=== PATIENT | female | born 1940 | race Caucasian/White ===

== ENCOUNTER 2018-01-16 22:47 | Inpatient (IN) ==
--- NOTE | 2018-01-16 23:06 | Emergency Department Note ---
Disposition Clinical Impression: Weakness of both lower extremities, Decreased ambulation status, Weakness of left upper extremity Altered mental status Qualifiers: Altered mental status type: unspecified Qualified Code(s): R41.82 - Altered mental status, unspecified Disposition: Admitted As Inpatient Condition: Good Time of Disposition: 01:56 Altered Mental Status HPI - General Chief Complaint: ED Altered Mental Status Stated Complaint: AMS Time Seen by Provider: 01/16/18 23:04 Source: family Mode of arrival: ambulatory Limitations: no limitations Nursing Notes Reviewed: Yes Vital Signs Reviewed: Yes - History of Present Illness HPI Narrative: Patient is a 77-year-old female with past history of hypertension, diabetes, dialysis dependent. She presents today due to altered mental status. Daughter states that she lives with the patient and that she had a fall on Tuesday. This was not witnessed but she was found by 2 other family members, was helped back up and seemed to be doing well per her baseline per daughter. However, this morning, upon awakening, the patient appeared to be confused more than normal, had decreased ambulation status. Daughter states that she is usually alert and oriented 3 and walks without any difficulty. Throughout the day, her status has progressively worsened. She is now nonverbal, will not ambulate at all. She has noticed some possible weakness of the left upper and left lower extremity. Denies any other facial drooping or slurring speech. - Related Data Home Medications Medication Instructions Recorded Confirmed Aspirin [Adult Aspirin Regimen] 81 mg PO DAILY 01/17/18 01/17/18 Atorvastatin [Lipitor] 40 mg PO HS 01/17/18 01/17/18 B Complex W-C No.20/Folic Acid 1 mg PO DAILY 01/17/18 01/17/18 [Nephrocaps Softgel] Calcium Acetate [Phos-LO] 667 mg PO BID 01/17/18 01/17/18 Cinacalcet HCl [Sensipar] 60 mg PO DAILY 01/17/18 01/17/18 Lisinopril [Zestril] 10 mg PO BID 01/17/18 01/17/18 Megestrol Acetate [Megace] 40 mg PO BID 01/17/18 01/17/18 Metoclopramide [Reglan] 10 mg PO QIDAC 01/17/18 01/17/18 Metoprolol Tartrate [Lopressor] 12.5 mg PO BID 01/17/18 01/17/18 Omeprazole [PriLOSEC] 20 mg PO BID 01/17/18 01/17/18 Allergies Allergy/AdvReac Type Severity Reaction Status Date / Time sulfamethoxazole Allergy Hives Verified 06/22/17 19:42 [From ] trimethoprim [From ] Allergy Hives Verified 06/22/17 19:42 Limitations: ROS unobtainable due to patients medical condition Past Medical History - Past Medical History Medical history: Reports: cancer, diabetes, dialysis, hypertension, RA, renal disease Surgical history: Reports: cholecystectomy, colectomy Psychiatric history: Reports: no psych history - Social History Smoking Status: Never smoker Smokeless Tobacco Status: No Alcohol use: Reports: none Drug use: Reports: none Physical Exam - General Limitations: altered mental status General appearance: alert - Head Head exam: atraumatic, normocephalic, normal inspection - Eye Eye exam: Present: normal appearance, PERRL, EOMI - ENT ENT exam: normal exam, normal oropharynx, mucous membranes moist - Neck Neck exam: Present: normal inspection, full ROM, trachea midline. Absent: tenderness - Chest Chest inspection: Present: normal inspection, symmetric chest wall rise - Respiratory Respiratory exam: Present: normal lung sounds bilaterally - Cardiovascular Cardiovascular exam: Present: regular rate, normal rhythm, normal heart sounds - Abdominal Exam Abdominal exam: Present: soft, Non-Tender. Absent: tenderness, distention, guarding, rebound, rigidity - Extremities Exam Extremities exam: Present: full ROM, other (small skin tear of LLE). Absent: tenderness, pedal edema - Neurological Exam Neurological exam: Present: alert - Expanded Neurological Exam Patient oriented to: Present: place. Absent: person, time Speech: Present: expressive aphasia Coma Scale Eye Opening: Spontaneous Coma Scale Motor Response: Localizes to Pain Coma Scale Verbal Response: None Coma Scale Total: 10 - Psychiatric Psychiatric exam: Present: normal mood, flat affect - Skin Skin exam: Present: warm, dry, intact, normal color Course Course Narrative: Patient only oriented to place, not person or time. She follows very minimal commands. No obvious facial droop. There does appear to be some weakness of the left upper extremity, no movement of the bilateral large ovaries. She is not following commands very well so full NIH scale is not able to be accurately obtained. Will not track with eyes. With recent trauma, there is concern for possible intracranial bleed. Patient is currently on aspirin but no other blood thinners. Also currently concern for stroke. ct of the head and cervical spine noncontrast, cannot perform cta due to patient being chronic renal patient. we will also obtain basic blood work, ekg, chest x-ray, troponin , urinalysis. 01:52 VBG shows no major metabolic/resp derangement. UA negative for UTI. Head and neck imaging negative, chest x-ray negative for any acute process. Patient was given Narcan without any change. No definite source for altered mental status at this time. Remains afebrile. Stroke still on differential the patient is outside window for TPA or thrombectomy. We will admit to the hospitalist for further workup and care of altered mental status. Cervical Spine CT 01/16/18 23:17 IMPRESSION: No acute abnormality of the cervical spine. Diffuse demineralization. D/ / Garland Morin MD / Garland Morin MD Interpreting Provider: Garland Morin MD Chest X-Ray 01/16/18 23:17 IMPRESSION: Low lung volume examination. Stable cardiomegaly and vascular congestion and interstitial prominence. D/ / Eduardo Pace MD / Eduardo Pace MD Interpreting Provider: Eduardo Pace MD Head CT 01/16/18 23:17 IMPRESSION: No acute intracranial abnormality. D/ / Garland Morin MD / Garland Mroin MD Interpreting Provider: Garland Morin MD Vital Signs Temperature 97.5 F L 01/16/18 22:48 Pulse Rate 67 01/16/18 22:48 Respiratory Rate 20 01/16/18 22:48 Blood Pressure 190/80 01/16/18 22:48 O2 Sat by Pulse Oximetry 96 01/16/18 22:48 Temperature 97.9 F 01/17/18 02:53 Pulse Rate 82 01/17/18 02:53 Respiratory Rate 15 01/17/18 02:53 Blood Pressure 174/90 01/17/18 02:53 O2 Sat by Pulse Oximetry 98 01/17/18 02:53 Oxygen Delivery Oxygen Delivery Nasal Cannula Altered Mental Status - MDM Narrative Medical decision making narrative: Patient only oriented to place, not person or time. She follows very minimal commands. No obvious facial droop. There does appear to be some weakness of the left upper extremity, no movement of the bilateral large ovaries. She is not following commands very well so full NIH scale is not able to be accurately obtained. Will not track with eyes. With recent trauma, there is concern for possible intracranial bleed. Patient is currently on aspirin but no other blood thinners. Also currently concern for stroke. ct of the head and cervical spine noncontrast, cannot perform cta due to patient being chronic renal patient. we will also obtain basic blood work, ekg, chest x-ray, troponin , urinalysis. 01:52 VBG shows no major metabolic/resp derangement. UA negative for UTI. Head and neck imaging negative, chest x-ray negative for any acute process. Patient was given Narcan without any change. No definite source for altered mental status at this time. Remains afebrile. Stroke still on differential the patient is outside window for TPA or thrombectomy. We will admit to the hospitalist for further workup and care of altered mental status. - Medical Records Medical records reviewed: Yes I reviewed the patient's medical records. - Lab Data Lab results reviewed: Yes I reviewed the patient's lab results. Result diagrams: 01/17/18 04:50 01/16/18 23:17 Lab Results 01/16/18 01/16/18 01/16/18 Range/Units 23:17 23:17 23:17 WBC 7.1 (4.3-11.1) K/mcL RBC 3.75 L (3.82-4.97) M/mcL Hgb 12.0 (11.5-15.4) g/dL Hct 35.9 (35.3-44.9) % MCV 95.7 (83.0-100.0) fL MCH 32.0 (28.0-33.3) pg MCHC 33.4 (31.6-35.5) g/dL RDW 13.3 (11.5-14.5) % Plt Count 204 (140-400) K/mcL MPV 11.3 (9.4-12.4) fL Immature Gran % 0.8 (0-4) % Seg Neutrophils % 77.3 % Lymphocytes % 14.5 % Monocytes % 5.9 % Eosinophils % 0.8 % Basophils % 0.7 % Neutrophils # 5.5 (1.6-8.9) K/mcL Lymphocytes # 1.0 (0.6-4.6) K/mcL Monocytes # 0.4 (0.0-1.3) K/mcL Eosinophils # 0.1 (0.0-0.6) K/mcL Basophils # 0.1 (0.0-0.2) K/mcL PT 11.3 (9.4-12.1) Seconds INR 1.1 APTT 32.5 (26.0-36.0) Seconds Sample Site ABG pH (7.32-7.45) pH Units ABG pCO2 (35-45) mmHg ABG pO2 (85-104) mmHg ABG HCO3 (21-27) mEq/L ABG Total CO2 (20-26) mEq/L ABG O2 Saturation (95-98) % ABG Base Excess (-2 to 3) mEq/L Emanuel Test O2 Delivery Device Inspired O2 (1-15=lpm [id number]=%) Sodium 137 (136-145) mEq/L Potassium 3.7 (3.5-5.1) mEq/L Chloride 96 L (98-107) mEq/L Carbon Dioxide 29 (23-29) mEq/L BUN 18 (8-23) mg/dL Creatinine 5.16 H (0.60-1.20) mg/dL Est GFR ( Amer) 10 L (> 60) Est GFR (Non-Af Amer) 8 L (> 60) BUN/Creatinine Ratio 3 L (6-26) Glucose 129 H (70-105) mg/dL POC Glucose (70-99) mg/dL Calculated Osmolality 288 (280-300) Calcium 10.2 (8.6-10.3) mg/dL Total Bilirubin 0.6 (0.3-1.0) mg/dL Direct Bilirubin 0.1 (0.0-0.2) mg/dL Indirect Bilirubin 0.5 (0.0-1.2) mg/dL AST 14 (13-39) Units/L ALT 11 (7-52) Units/L Alkaline Phosphatase 97 (34-104) Units/L Troponin I < 0.03 (< 0.04) ng/mL Serum Total Protein 6.4 (6.4-8.9) g/dL Albumin 3.8 (3.5-5.7) g/dL Globulin 2.6 (2.4-3.5) g/dL Albumin/Globulin Ratio 1.5 (1.1-2.2) TSH 2.679 (0.340-5.600) mcIU/mL Urine Color (Yellow) Urine Clarity (Clear) Urine pH (5.0-8.0) pH Units Ur Specific [place] (1.010-1.025) Urine Protein (Neg-Trace) mg/dL Urine Glucose (UA) (Normal) mg/dL Urine Ketones (Negative) mg/dL Urine Blood (Negative) Urine Nitrite (Negative) Urine Bilirubin (Negative) Urine Urobilinogen (Normal) mg/dL Ur Leukocyte Esterase (Negative) Urine Microscopic RBC (0-3) per hpf Urine Microscopic WBC (0-3) per hpf Ur Squamous Epith Cells (None-Few) per lpf Ur Culture Indicated? (NO) Urine Opiates Screen (Jvggek=605) ng/mL Ur Barbiturates Screen (Lndrjz=660) ng/mL Ur Phencyclidine Scrn (Cutoff=25) ng/mL Ur Amphetamines Screen (Nspybv=5006) ng/mL U Benzodiazepines Scrn (Pzsoei=624) ng/mL Urine Cocaine Screen (Cutoff= 300) ng/mL U Marijuana (THC) Screen (Cutoff = 50) ng/mL 01/16/18 01/16/18 01/16/18 Range/Units 23:26 23:26 23:37 WBC (4.3-11.1) K/mcL RBC (3.82-4.97) M/mcL Hgb (11.5-15.4) g/dL Hct (35.3-44.9) % MCV (83.0-100.0) fL MCH (28.0-33.3) pg MCHC (31.6-35.5) g/dL RDW (11.5-14.5) % Plt Count (140-400) K/mcL MPV (9.4-12.4) fL Immature Gran % (0-4) % Seg Neutrophils % % Lymphocytes % % Monocytes % % Eosinophils % % Basophils % % Neutrophils # (1.6-8.9) K/mcL Lymphocytes # (0.6-4.6) K/mcL Monocytes # (0.0-1.3) K/mcL Eosinophils # (0.0-0.6) K/mcL Basophils # (0.0-0.2) K/mcL PT (9.4-12.1) Seconds INR APTT (26.0-36.0) Seconds Sample Site ABG pH (7.32-7.45) pH Units ABG pCO2 (35-45) mmHg ABG pO2 (85-104) mmHg ABG HCO3 (21-27) mEq/L ABG Total CO2 (20-26) mEq/L ABG O2 Saturation (95-98) % ABG Base Excess (-2 to 3) mEq/L Emanuel Test O2 Delivery Device Inspired O2 (1-15=lpm [id number]=%) Sodium (136-145) mEq/L Potassium (3.5-5.1) mEq/L Chloride (98-107) mEq/L Carbon Dioxide (23-29) mEq/L BUN (8-23) mg/dL Creatinine (0.60-1.20) mg/dL Est GFR ( Amer) (> 60) Est GFR (Non-Af Amer) (> 60) BUN/Creatinine Ratio (6-26) Glucose (70-105) mg/dL POC Glucose 118 H (70-99) mg/dL Calculated Osmolality (280-300) Calcium (8.6-10.3) mg/dL Total Bilirubin (0.3-1.0) mg/dL Direct Bilirubin (0.0-0.2) mg/dL Indirect Bilirubin (0.0-1.2) mg/dL AST (13-39) Units/L ALT (7-52) Units/L Alkaline Phosphatase (34-104) Units/L Troponin I (< 0.04) ng/mL Serum Total Protein (6.4-8.9) g/dL Albumin (3.5-5.7) g/dL Globulin (2.4-3.5) g/dL Albumin/Globulin Ratio (1.1-2.2) TSH (0.340-5.600) mcIU/mL Urine Color Yellow (Yellow) Urine Clarity Clear (Clear) Urine pH 8.0 (5.0-8.0) pH Units Ur Specific [place] 1.014 (1.010-1.025) Urine Protein >=300 H (Neg-Trace) mg/dL Urine Glucose (UA) 100 H (Normal) mg/dL Urine Ketones Negative (Negative) mg/dL Urine Blood Trace H (Negative) Urine Nitrite Negative (Negative) Urine Bilirubin Negative (Negative) Urine Urobilinogen Normal (Normal) mg/dL Ur Leukocyte Esterase Negative (Negative) Urine Microscopic RBC 0-3 (0-3) per hpf Urine Microscopic WBC 0-3 (0-3) per hpf Ur Squamous Epith Cells Few (None-Few) per lpf Ur Culture Indicated? NO (NO) Urine Opiates Screen Negative (Ncwbcw=213) ng/mL Ur Barbiturates Screen Negative (Gympyt=459) ng/mL Ur Phencyclidine Scrn Negative (Cutoff=25) ng/mL Ur Amphetamines Screen Negative (Xahbgg=2297) ng/mL U Benzodiazepines Scrn Negative (Bfeuzd=680) ng/mL Urine Cocaine Screen Negative (Cutoff= 300) ng/mL U Marijuana (THC) Screen Negative (Cutoff = 50) ng/mL 01/16/18 Range/Units 23:49 WBC (4.3-11.1) K/mcL RBC (3.82-4.97) M/mcL Hgb (11.5-15.4) g/dL Hct (35.3-44.9) % MCV (83.0-100.0) fL MCH (28.0-33.3) pg MCHC (31.6-35.5) g/dL RDW (11.5-14.5) % Plt Count (140-400) K/mcL MPV (9.4-12.4) fL Immature Gran % (0-4) % Seg Neutrophils % % Lymphocytes % % Monocytes % % Eosinophils % % Basophils % % Neutrophils # (1.6-8.9) K/mcL Lymphocytes # (0.6-4.6) K/mcL Monocytes # (0.0-1.3) K/mcL Eosinophils # (0.0-0.6) K/mcL Basophils # (0.0-0.2) K/mcL PT (9.4-12.1) Seconds INR APTT (26.0-36.0) Seconds Sample Site L Radial ABG pH 7.44 (7.32-7.45) pH Units ABG pCO2 48 H (35-45) mmHg ABG pO2 178 H (85-104) mmHg ABG HCO3 33 H (21-27) mEq/L ABG Total CO2 34 H (20-26) mEq/L ABG O2 Saturation 100 H (95-98) % ABG Base Excess 8 H (-2 to 3) mEq/L Emanuel Test N/A O2 Delivery Device Cannula Inspired O2 36.0 (1-15=lpm [id number]=%) Sodium (136-145) mEq/L Potassium (3.5-5.1) mEq/L Chloride (98-107) mEq/L Carbon Dioxide (23-29) mEq/L BUN (8-23) mg/dL Creatinine (0.60-1.20) mg/dL Est GFR ( Amer) (> 60) Est GFR (Non-Af Amer) (> 60) BUN/Creatinine Ratio (6-26) Glucose (70-105) mg/dL POC Glucose (70-99) mg/dL Calculated Osmolality (280-300) Calcium (8.6-10.3) mg/dL Total Bilirubin (0.3-1.0) mg/dL Direct Bilirubin (0.0-0.2) mg/dL Indirect Bilirubin (0.0-1.2) mg/dL AST (13-39) Units/L ALT (7-52) Units/L Alkaline Phosphatase (34-104) Units/L Troponin I (< 0.04) ng/mL Serum Total Protein (6.4-8.9) g/dL Albumin (3.5-5.7) g/dL Globulin (2.4-3.5) g/dL Albumin/Globulin Ratio (1.1-2.2) TSH (0.340-5.600) mcIU/mL Urine Color (Yellow) Urine Clarity (Clear) Urine pH (5.0-8.0) pH Units Ur Specific [place] (1.010-1.025) Urine Protein (Neg-Trace) mg/dL Urine Glucose (UA) (Normal) mg/dL Urine Ketones (Negative) mg/dL Urine Blood (Negative) Urine Nitrite (Negative) Urine Bilirubin (Negative) Urine Urobilinogen (Normal) mg/dL Ur Leukocyte Esterase (Negative) Urine Microscopic RBC (0-3) per hpf Urine Microscopic WBC (0-3) per hpf Ur Squamous Epith Cells (None-Few) per lpf Ur Culture Indicated? (NO) Urine Opiates Screen (Dyenbz=524) ng/mL Ur Barbiturates Screen (Vbluta=763) ng/mL Ur Phencyclidine Scrn (Cutoff=25) ng/mL Ur Amphetamines Screen (Bbxrwn=8137) ng/mL U Benzodiazepines Scrn (Hsxkjz=425) ng/mL Urine Cocaine Screen (Cutoff= 300) ng/mL U Marijuana (THC) Screen (Cutoff = 50) ng/mL - Radiology Data Radiology results reviewed: Yes I reviewed the patient's radiology results. Cervical Spine CT 01/16/18 23:17 IMPRESSION: No acute abnormality of the cervical spine. Diffuse demineralization. D/ / Garland Morin MD / Garland Morin MD Interpreting Provider: Garland Morin MD Chest X-Ray 01/16/18 23:17 IMPRESSION: Low lung volume examination. Stable cardiomegaly and vascular congestion and interstitial prominence. D/ / Eduardo Pace MD / Eduardo Pace MD Interpreting Provider: Eduardo Pace MD Head CT 01/16/18 23:17 IMPRESSION: No acute intracranial abnormality. D/ / Garland Morin MD / Garland Morin MD Interpreting Provider: Garland Morin MD - EKG Data EKG attestation: Yes I reviewed and interpreted this EKG. S.B.Pipe - S.Tracy Situation: Demographics, MOA Background: Presenting Complaint, Relevant PMH, Meds, & Allergies Assessment: Vital Signs, Course and respsone to treatment, Exam Concerns, Patient/Family Expectation, Pertinant Lab Results Recommendation: Barrier(s) to disposition, Recommendation based on pending studies, treatments, or consults S.B.A.R. Report Given to: Dr. Martinez Attestation Statement - Attestation Attestation: I examined this patient and my medical decision-making was reviewed with the Resident Physician. I agree with the documented findings, disposition and treatment plan as described except to the extent set forth below. Findings consistent with altered mental status. The exact cause is unknown at this time. Advanced imaging as well as metabolic panel does not suggest a significant explanation as to why the patient is so altered. She is not following any commands at this time. We will admit for MRI. Her vital signs are stable and she is protecting her airway. CT scan of brain shows no acute findings. The patient will be admitted in stable condition for further management of possible encephalopathy. NIH Stroke Scale - Level of Consciousness LOC: Alert - LOC Questions LOC Questions: Answers one correctly - LOC Commands LOC Commands: Performs both incorrectly - Best Gaze Best Gaze: Normal - Visual Visual: No visual loss - Facial Palsy Facial Palsy: Normal - Motor Arms Motor Arm-Left: Drift, does NOT hit bed Motor Arm-Right: No drift for 10 seconds - Motor Legs Motor Leg-Left: No movement Motor Leg-Right: No movement - Limb Ataxia Limb Ataxia: Absent of affected limb too weak to perform exam - Sensory Sensory: Normal - Best Language Best Language: Severe aphasia. Examiner CAN NOT identify pictures from response - Dysarthria Dysarthria: Normal - Extinction and Inattention Extinction and Inattention: Normal - NIHSS Total Score NIHSS Total Score: 14
[2018-01-16 23:43] LABS: Basophils # 0.1 K/mcL (0.0-0.2); Basophils % 0.7 %; Eosinophils # 0.1 K/mcL (0.0-0.6); Eosinophils % 0.8 %; Hematocrit 35.9 % (35.3-44.9); Immature Granulocytes % 0.8 % (0-4); Lymphocytes % 14.5 %; Mean Corpuscular HGB Conc 33.4 g/dL (31.6-35.5); Mean Corpuscular Volume 95.7 fL (83.0-100.0); Mean Platelet Volume 11.3 fL (9.4-12.4); Monocytes # 0.4 K/mcL (0.0-1.3); Monocytes % 5.9 %; Neutrophils # 5.5 K/mcL (1.6-8.9); Platelet Count 204 K/mcL (140-400); Red Blood Count 3.75 M/mcL (3.82-4.97); Red Cell Distribution Width 13.3 % (11.5-14.5); Segmented Neutrophils % 77.3 %
[2018-01-16 23:49] LABS: INR 1.1; Prothrombin Time 11.3 Seconds (9.4-12.1)
[2018-01-16 23:52] LABS: Activated Partial Thrombo Time 32.5 Seconds (26.0-36.0)
[2018-01-16 23:54] LABS: ABG Base Excess 8 mEq/L (-2 to 3); ABG HCO3 33 mEq/L (21-27); ABG Oxygen Saturation 100 % (95-98); ABG PCO2 48 mmHg (35-45); ABG PH 7.44 pH Units (7.32-7.45); ABG PO2 178 mmHg (85-104); ABG TCO2 34 mEq/L (20-26)
[2018-01-17] LABS: Alanine Aminotransferase 11 Units/L (7-52); Albumin 3.8 g/dL (3.5-5.7); Albumin/Globulin Ratio 1.5 (1.1-2.2); Alkaline Phosphatase 97 Units/L (34-104); Aspartate Amino Transferase 14 Units/L (13-39); BUN/Creatinine Ratio 3 (6-26); Bilirubin,Direct 0.1 mg/dL (0.0-0.2); Bilirubin,Indirect 0.5 mg/dL (0.0-1.2); Bilirubin,Total 0.6 mg/dL (0.3-1.0); Blood Urea Nitrogen 18 mg/dL (8-23); Calcium 10.2 mg/dL (8.6-10.3); Carbon Dioxide 29 mEq/L (23-29); Chloride 96 mEq/L (98-107); Globulin 2.6 g/dL (2.4-3.5); Glucose 129 mg/dL (70-105); Osmolality,Calculated 288 (280-300); Potassium 3.7 mEq/L (3.5-5.1); Sodium 137 mEq/L (136-145); Total Protein 6.4 g/dL (6.4-8.9); eGFR For African Americans 10 (> 60); eGFR For Non-African Americans 8 (> 60)
[2018-01-17 00:01] LABS: Troponin I < 0.03 ng/mL (< 0.04)
[2018-01-17 00:14] LABS: Thyroid Stimulating Hormone 2.679 mcIU/mL (0.340-5.600)
[2018-01-17 00:36] LABS: Color,Urine Yellow (Yellow)
[2018-01-17 00:37] LABS: Bilirubin,Urine Negative (Negative); Blood,Urine Trace (Negative); Clarity,Urine Clear (Clear); Glucose,Urine (UA) 100 mg/dL (Normal); Ketones,Urine Negative (Negative); Leukocyte Esterase,Urine Negative (Negative); Nitrite,Urine Negative (Negative); Protein,Urine >=300 mg/dL (Neg-Trace); Specific Gravity,Urine 1.014 (1.010-1.025); Urobilinogen,Urine Normal (Normal)
[2018-01-17] MEDS ORDERED: Naloxone 0.4 MG/ML INJ IVP ONE (00:39)
[2018-01-17 00:40] LABS: RBC,Urine 0-3 per hpf (0-3); Squamous Epithelial Cell,Urine Few per lpf (None-Few); WBC,Urine 0-3 per hpf (0-3)
[2018-01-17 00:52] LABS: Amphetamine Screen,Urine Negative ng/mL (Cutoff=1000); Barbiturate Screen,Urine Negative ng/mL (Cutoff=200); Benzodiazepines Screen,Urine Negative ng/mL (Cutoff=200); Cannabinoid Screen,Urine Negative ng/mL (Cutoff = 50); Cocaine Screen,Urine Negative ng/mL (Cutoff= 300); Opiate Screen,Urine Negative ng/mL (Cutoff=300); Phencyclidine Screen,Urine Negative ng/mL (Cutoff=25)
[2018-01-17] MEDS ORDERED: 0.9 % Sodium Chloride 500 ML IVC ONE (02:04)
[2018-01-17] MEDS ORDERED: Gadolinium Contrast Agent (WT Based) IV PRN (02:30)
[2018-01-17] MEDS ORDERED: Acetaminophen 650 MG RECTAL SUPP RC PRN (02:42)
[2018-01-17] MEDS ORDERED: Naloxone 0.4 MG/ML INJ IVP PRN (02:51)
[2018-01-17] MEDS ORDERED: Dextrose Gel 15 GM/37.5 ML TUBE PO PRN ×2 (03:05)
[2018-01-17] MEDS ORDERED: D5% in Water 1,000 ML IVC PRN (03:05)
[2018-01-17] MEDS ORDERED: *HR* Dextrose 50 % in Water (Syg) 50 ML SYRINGE IVP PRN (03:05)
--- NOTE | 2018-01-17 03:08 | Internal Med History&Physical ---
Date of Encounter: 01/17/18 Time of Encounter: 03:36 Internal Medicine - H&P: HPI Chief complaint: "Not being herself after fall" per daughter Admitted From: Emergency Dept Plans for Post Hospital Care: Home History of present illness: Ms. Greer is a 77 year old female who presents for AMS getting worse over last few days. Daughter is in the room and provides all of the history. Patient is non-verbal, but she does move her head yes/no appropriately. She is not in any pain or discomfort. Daughter states that she sometimes gets like this when she has low blood glucose or hyperkalemia. ED labwork is unremarkable. Daughter is concerned about BLE weakness and possible LUE weakness. I cannot perform full physical examination due to patient condition. Daughter is interested in home health. I was asked by ED physician to admit patient for AMS not back to baseline and CVA ruleout. Past Med Surg Social Fam HX - Past Medical History Source: unable to obtain Medical history: cancer, diabetes, dialysis, hypertension, RA, renal disease Psychiatric history: no psych history - Past Surgical History Surgical History: cholecystectomy, colectomy - Social History Smoking Status: Never smoker Smokeless Tobacco Status: No Alcohol use: none Drug use: none - Additional Family History Additional family history: Unable to obtain family history due to patient condition. Internal Medicine - H&P: Meds Aspirin [Adult Aspirin Regimen] 81 mg PO DAILY 01/17/18 [History] Atorvastatin [Lipitor] 40 mg PO HS 01/17/18 [History] B Complex W-C No.20/Folic Acid [Nephrocaps Softgel] 1 mg PO DAILY 01/17/18 [ History] Calcium Acetate [Phos-LO] 667 mg PO BID 01/17/18 [History] Cinacalcet HCl [Sensipar] 60 mg PO DAILY 01/17/18 [History] Lisinopril [Zestril] 10 mg PO BID 01/17/18 [History] Megestrol Acetate [Megace] 40 mg PO BID 01/17/18 [History] Metoclopramide [Reglan] 10 mg PO QIDAC 01/17/18 [History] Metoprolol Tartrate [Lopressor] 12.5 mg PO BID 01/17/18 [History] Omeprazole [PriLOSEC] 20 mg PO BID 01/17/18 [History] 3 Allergy/AdvReac Type Severity Reaction Status Date / Time sulfamethoxazole Allergy Hives Verified 06/22/17 19:42 [From ] trimethoprim [From ] Allergy Hives Verified 06/22/17 19:42 ROS unobtainable: due to mental status All Systems PM: A 10-system review of systems was performed and is negative for pertinent findings except as documented above in the HPI. - Constitutional Vitals: Temp Pulse Resp BP Pulse Ox 97.9 F 82 15 174/90 98 01/17/18 02:53 01/17/18 02:53 01/17/18 02:53 01/17/18 02:53 01/17/18 02:53 General appearance: Present: A&O X 0, no acute distress, obese. Absent: answers questions appropriately - Head Head exam: Present: atraumatic, normal inspection, normocephalic - Eye Eye exam: Present: EOMI, normal appearance, PERRL. Absent: conjunctival injection, nystagmus, scleral icterus - ENT ENT exam: Present: mucous membranes moist, normal external ear exam, normal oropharynx - Neck Neck exam general surgery: Present: supple, trachea midline. Absent: lymphadenopathy, tenderness, thyromegaly - Respiratory Respiratory exam: Present: CTAB. Absent: accessory muscle use, rales, rhonchi, wheezes Additional comments: Normal WOB - Cardiovascular Cardiovascular exam: Present: RRR, +S1, +S2. Absent: diastolic murmur, gallop, rubs, systolic murmur Additional comments: No BLE edema - GI/Abdominal GI/Abdominal exam: Present: normal bowel sounds, soft. Absent: distended, hepatomegaly, mass, splenomegaly, tenderness - Neurological Exam Neurological exam: Present: altered. Absent: facial droop Additional comments: Unable to fully evaluate due to patient condition - Psychiatric Psychiatric exam: Absent: agitated, anxious, depressed Additional comments: Unable to fully evaluate due to patient condition - Skin Skin exam: Present: dry, warm. Absent: cyanosis, rash Internal Med - H&P Results - Labs CBC & Chem 7: 01/16/18 23:17 01/16/18 23:17 - VTE Documentation of Mechanical Device: Intermittent pneumatic compression device - Assessment and plan (1) Altered mental status Current Visit: Yes Status: Acute Assessment and plan: New onset. Family states she sometimes gets like this when her blood glucose or potassium is off. Already improving since arrival to ED per daughter. She lives with daughter. Her baseline is walking and talking. She had a fall few days ago. She has some BLE weakness per daughter. Patient answers appropriately to yes/no questions. She is non-verbal at this time. We will rule out CVA. Obtain MRI brain in AM. Consult neurologist in AM; appreciate their input. Neurochecks Q4H. NPO until ST evaluation. Continue home aspirin and statin when taking PO. Will consult PT/OT due to BLE weakness and recurrent falls. Will consult SW to see if patient can get home health. Avoid sedating medications. Repeat labwork in AM. Qualifiers: Altered mental status type: unspecified Qualified Code(s): R41.82 - Altered mental status, unspecified (2) Decreased ambulation status Current Visit: Yes Status: Acute Assessment and plan: Plan as per above. (3) Weakness of both lower extremities Current Visit: Yes Status: Acute Assessment and plan: Plan as per above. (4) Weakness of left upper extremity Current Visit: Yes Status: Acute Assessment and plan: Plan as per above. (5) Diabetes mellitus Current Visit: Yes Status: Chronic Assessment and plan: Start accuchecks and low dose SSI Q6H while NPO. Qualifiers: Diabetes mellitus type: type 2 Diabetes mellitus rat exterminator insulin use: without rat exterminator use Diabetes mellitus complication status: without complication Qualified Code(s): E11.9 - Type 2 diabetes mellitus without complications (6) End stage renal disease Current Visit: Yes Status: Chronic Assessment and plan: Will consult nephrology in AM; appreciate their help. On low rate IVF while NPO. Continue MWF dialysis schedule. (7) DVT prophylaxis Current Visit: Yes Status: Acute Assessment and plan: Start SCDs. - Time Spent With Patient Total time spent is greater than 50% in coordination of care (as documented) at patient's floor/unit and/or counseling patient: less than 15 minutes
[2018-01-17 05:28] LABS: Basophils % 0.6 %; Eosinophils % 0.4 %; Hematocrit 33.2 % (35.3-44.9); Hemoglobin 10.9 g/dL (11.5-15.4); Immature Granulocytes % 0.6 % (0-4); Lymphocytes # 1.1 K/mcL (0.6-4.6); Lymphocytes % 15.6 %; Mean Corpuscular HGB Conc 32.8 g/dL (31.6-35.5); Mean Corpuscular Hemoglobin 31.1 pg (28.0-33.3); Mean Corpuscular Volume 94.9 fL (83.0-100.0); Mean Platelet Volume 11.4 fL (9.4-12.4); Monocytes # 0.4 K/mcL (0.0-1.3); Monocytes % 5.5 %; Neutrophils # 5.3 K/mcL (1.6-8.9); Platelet Count 191 K/mcL (140-400); Red Cell Distribution Width 13.2 % (11.5-14.5); Segmented Neutrophils % 77.3 %
[2018-01-17 05:48] LABS: Calcium 9.8 mg/dL (8.6-10.3); Potassium 3.8 mEq/L (3.5-5.1)
[2018-01-17] MEDS: 0.9 % Sodium Chloride 1,000 ML IVC SCH (06:33)
[2018-01-17] MEDS: Insulin LISPRO 300 UNITS/3 ML VIAL SQ SCH ×4 (06:37→23:46)
[2018-01-17 09:29] LABS: Estimated Average Glucose 91 mg/dl; Hemoglobin A1C 4.8 %
[2018-01-17] MEDS: Renal Vitamin 1 MG CAPSULE PO SCH (09:55)
[2018-01-17] MEDS: Calcium Acetate 667 MG CAPSULE PO SCH ×2 (09:55→17:20)
[2018-01-17] MEDS: Aspirin 81 MG TAB.CHEW PO SCH (09:56)
--- NOTE | 2018-01-17 16:29 | Neurology - Consult Note ---
Date of Encounter: 01/17/18 Time of Encounter: 16:23 Assessment and Plan (1) Altered mental status Current Visit: No Status: Resolved Patient has developed acute onset of mental status changes characterized by not responding verbal inquiries, with starring activity and not acting normal self, without focal weakness and other localizing signs. Patient does carry history of tuberous sclerosis and positive family history of the disease and does seem to have baseline cognitive impairment which would be expected from her having tuberous sclerosis. 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 Patient has no previous history of established diagnosis of seizure but she is certainly having risk of partial epilepsy due to tuberous sclerosis. At the time of this interview, the patient completed MRI of brain which showed no acute infarct. However, it was a poor quality study due to motion artifacts. No cerebral tuber can be detected. therefore likely the patient is likely developed encephalopathy of some sort on top of TSC with baseline cognitive impairment. Since risk of partial epilepsy is higher, will do a routine EEG to assess possibility of silent partial epilepsy. Please continue medical and supportive care. carotid artery artery duplex and echocardiography are needed as well Qualifiers: Altered mental status type: unspecified Qualified Code(s): R41.82 - Altered mental status, unspecified History of Present Illness Chief complaint: mental status changes HPI: Ms. Greer is a 77 year old female 77 year old woman with PMH significant for tuberous sclerosis, HTN, hyperparthyroidism, GERD, RA, DM ESRD who developed acute onset of mental status changes. Patient is interviewed in the presence of her daughter. Daughter states that yesterday the patient was found to be acting funny and not normal self. Daughter told her something she was just looking at her and acted like she does not know what is going on. She just is not responding to her as usual. She has history of tuberous sclerosis, and she does have baseline cognitive impairment and she is able to walk with a walker. She walks little without assistance and walks better with a walker at home per her daughter. She has no history of seizures though. She came back from MRI scanning. She is wide awake and makes good eye contact but is essentially mute. However, she did, after repetitive request, tell me er daughter name correctly therefore is alert and oriented to person. But then she simply stopped responding to questions and simply look at you without any signs of discomforts. Is able to turn on the back when asked to. Able to move all extremities. Past Med Surg Social Fam HX - Past Medical History Medical history: cancer, diabetes, dialysis, hypertension, RA, renal disease Psychiatric history: no psych history - Past Surgical History Surgical History: cholecystectomy, colectomy - Social History Smoking Status: Never smoker Smokeless Tobacco Status: No Alcohol use: none Drug use: none Medications and Allergies Aspirin [Adult Aspirin Regimen] 81 mg PO DAILY 01/17/18 [History] Atorvastatin [Lipitor] 40 mg PO HS 01/17/18 [History] B Complex W-C No.20/Folic Acid [Nephrocaps Softgel] 1 mg PO DAILY 01/17/18 [ History] Calcium Acetate [Phos-LO] 667 mg PO BID 01/17/18 [History] Cinacalcet HCl [Sensipar] 60 mg PO DAILY 01/17/18 [History] Lisinopril [Zestril] 10 mg PO DAILY 01/17/18 [History] Megestrol Acetate [Megace] 40 mg PO BID 01/17/18 [History] Metoclopramide [Reglan] 10 mg PO QIDAC 01/17/18 [History] Metoprolol Tartrate [Lopressor] 12.5 mg PO BID 01/17/18 [History] Omeprazole [PriLOSEC] 20 mg PO BID 01/17/18 [History] 3 Allergy/AdvReac Type Severity Reaction Status Date / Time sulfamethoxazole Allergy Hives Verified 06/22/17 19:42 [From ] trimethoprim [From ] Allergy Hives Verified 06/22/17 19:42 All Systems: The remainder of the systems were reviewed and are negative Physical Examination - Vital Signs Vital Signs: Initial Vital Signs Temp Pulse Resp BP Pulse Ox 97.5 F L 67 20 190/80 96 01/16/18 22:48 01/16/18 22:48 01/16/18 22:48 01/16/18 22:48 01/16/18 22:48 - Constitutional General appearance: comfortable - Neurologic Sensorimotor examination: other (Unable to assess due to incooperativity) Detailed motor examination: grossly full strength in all extremities (Hand electric 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 When flexing her neck she is resisting passive movement of her head. ) Reflex and gait examination: other (Gait not examined) Reflexes: Biceps: 2+, Triceps: 2+, Brachioradialis: 2+, Patella: 2+, Achilles: 2 + Mental Status Examination: awake, alert, oriented to person (Able to tell me her daughters name only one time. Then stopped responding wide awake), opens eyes to voice, makes eye contact, follows simple commands (Do follow simple commands such as turning on her back at least trying) Cranial nerve examination: PERRL, visual mensah intact (Unable to assess), corneal reflexes brisk symmetrically, sensory to face intact, mastication intact , no facial asymmetry is present, no dysarthria, hearing is intact symmetrically , soft palate elevates bilaterally upon phonation (Uanble to assess. Incooperative), gag reflex intact, flexes SCM and trapezius muscles symmetrically with full power, tongue protrudes midline, no atrophy or facial fasiculations present Results - Laboratory Findings CBC and BMP: 01/17/18 04:50 01/17/18 04:50 Abnormal lab findings: Abnormal lab results RBC 3.50 M/mcL (3.82-4.97) L 01/17/18 04:50 Hgb 10.9 g/dL (11.5-15.4) L 01/17/18 04:50 Hct 33.2 % (35.3-44.9) L 01/17/18 04:50 ABG pCO2 48 mmHg (35-45) H 01/16/18 23:49 ABG pO2 178 mmHg (85-104) H 01/16/18 23:49 ABG HCO3 33 mEq/L (21-27) H 01/16/18 23:49 ABG Total CO2 34 mEq/L (20-26) H 01/16/18 23:49 ABG O2 Saturation 100 % (95-98) H 01/16/18 23:49 ABG Base Excess 8 mEq/L (-2 to 3) H 01/16/18 23:49 Chloride 97 mEq/L (98-107) L 01/17/18 04:50 Creatinine 5.56 mg/dL (0.60-1.20) H 01/17/18 04:50 Est GFR ( Amer) 9 (> 60) L 01/17/18 04:50 Est GFR (Non-Af Amer) 7 (> 60) L 01/17/18 04:50 BUN/Creatinine Ratio 4 (6-26) L 01/17/18 04:50 Glucose 130 mg/dL (70-105) H 01/17/18 04:50 POC Glucose 118 mg/dL (70-99) H 01/16/18 23:37 Urine Protein >=300 mg/dL (Neg-Trace) H 01/16/18 23:26 Urine Glucose (UA) 100 mg/dL (Normal) H 01/16/18 23:26 Urine Blood Trace (Negative) H 01/16/18 23:26 - Diagnostic Findings Additional findings: MR/MR head/brain wo con IMPRESSION: 1. Severely limited study secondary to motion artifact. 2. No evidence of acute infarct. 3. Cerebral parenchymal volume loss with mild chronic microvascular white matter ischemic disease, stable. 4. Ventriculomegaly. While this is likely related to involutional change, normal pressure hydrocephalus cannot be excluded. Consult Discharge Plan - Plan Referrals: Sven Delong DO [Primary Care Provider] -
--- NOTE | 2018-01-17 16:57 | Electrocardiograph Report ---
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
[2018-01-17 18:59] LABS: Hepatitis B Surface Antigen Nonreactive (Nonreactive)
--- NOTE | 2018-01-17 20:34 | Event Note ---
Date of Encounter: 01/17/18 Time of Encounter: 16:00 Patient was seen earlier today by hospitalist. Presently patient oriented to name only attempts to follow simple commands answers yes and no at times just stares off. She is seen by neurology suspect encephalopathy of some sort on top of tuberous sclerosis with baseline cognitive impairment. Recommending EEG supportive care carotid artery duplex and echo.
[2018-01-18 03:52] LABS: Hepatitis B Surface Antibody 0.43 mIU/mL
[2018-01-18] MEDS: Insulin LISPRO 300 UNITS/3 ML VIAL SQ SCH ×4 (07:40→21:56)
[2018-01-18 08:00] LABS: Calcium 9.6 mg/dL (8.6-10.3); Potassium 3.4 mEq/L (3.5-5.1)
[2018-01-18 08:24] LABS: Basophils % 0.5 %; Eosinophils # 0.1 K/mcL (0.0-0.6); Eosinophils % 1.9 %; Hematocrit 32.5 % (35.3-44.9); Hemoglobin 10.4 g/dL (11.5-15.4); Immature Granulocytes % 0.5 % (0-4); Lymphocytes # 1.3 K/mcL (0.6-4.6); Lymphocytes % 17.4 %; Mean Corpuscular Hemoglobin 30.9 pg (28.0-33.3); Mean Corpuscular Volume 96.4 fL (83.0-100.0); Mean Platelet Volume 11.5 fL (9.4-12.4); Monocytes # 0.7 K/mcL (0.0-1.3); Monocytes % 9.1 %; Neutrophils # 5.2 K/mcL (1.6-8.9); Platelet Count 192 K/mcL (140-400); Red Blood Count 3.37 M/mcL (3.82-4.97); Red Cell Distribution Width 13.4 % (11.5-14.5); Segmented Neutrophils % 70.6 %
[2018-01-18] MEDS: 0.9 % Sodium Chloride 1,000 ML IVC SCH ×2 (08:24→21:55)
[2018-01-18] MEDS: Calcium Acetate 667 MG CAPSULE PO SCH ×2 (08:26→16:07)
[2018-01-18] MEDS: Aspirin 81 MG TAB.CHEW PO SCH (08:26)
[2018-01-18] MEDS: Renal Vitamin 1 MG CAPSULE PO SCH (08:26)
[2018-01-18] MEDS ORDERED: 0.9 % Sodium Chloride 250 ML IVC PRN (12:36)
[2018-01-18] MEDS ORDERED: 0.9 % Sodium Chloride 1,000 ML PRIME SCH (12:45)
--- NOTE | 2018-01-18 12:53 | Nephrology Consult Note ---
Date of Encounter: 01/18/18 Time of Encounter: 12:51 Assessment and Plan (1) End stage renal disease Current Visit: Yes Status: Chronic The patient will undergo dialysis today. I am going to make some adjustments to her antihypertensive regimen. (2) Altered mental status Current Visit: No Status: Resolved Qualifiers: Altered mental status type: unspecified Qualified Code(s): R41.82 - Altered mental status, unspecified (3) Tuberous sclerosis Current Visit: No Status: Chronic History of Present Illness - History of Present Illness This is a 77-year-old female with end-stage renal disease. End stage renal disease is in the setting of tuberous sclerosis. Patient receives dialysis every Tuesday in [place]. Patient was admitted after being observed by the family to have some mental status changes. Patient is a poor historian. Medical record indicates the patient was confused and nonverbal when she was initially admitted. Blood pressure was elevated. Currently the patient is more verbal. She will answer simple questions. She did is oriented to person. She no she is not at home but she is not sure that she is in the hospital. According to the patient's nurse she is definitely more verbal currently than she was when she first presented. She is scheduled for her usual dialysis today. Past Med Surg Social Fam HX - Past Medical History Medical history: cancer, diabetes, dialysis, hypertension, RA, renal disease Psychiatric history: no psych history - Past Surgical History Surgical History: cholecystectomy, colectomy - Social History Smoking Status: Never smoker Smokeless Tobacco Status: No Alcohol use: none Drug use: none Medications and Allergies Aspirin [Adult Aspirin Regimen] 81 mg PO DAILY 01/17/18 [History] Atorvastatin [Lipitor] 40 mg PO HS 01/17/18 [History] B Complex W-C No.20/Folic Acid [Nephrocaps Softgel] 1 mg PO DAILY 01/17/18 [ History] Calcium Acetate [Phos-LO] 667 mg PO BID 01/17/18 [History] Cinacalcet HCl [Sensipar] 60 mg PO DAILY 01/17/18 [History] Lisinopril [Zestril] 10 mg PO DAILY 01/17/18 [History] Megestrol Acetate [Megace] 40 mg PO BID 01/17/18 [History] Metoclopramide [Reglan] 10 mg PO QIDAC 01/17/18 [History] Metoprolol Tartrate [Lopressor] 12.5 mg PO BID 01/17/18 [History] Omeprazole [PriLOSEC] 20 mg PO BID 01/17/18 [History] 3 Allergy/AdvReac Type Severity Reaction Status Date / Time sulfamethoxazole Allergy Hives Verified 06/22/17 19:42 [From ] trimethoprim [From ] Allergy Hives Verified 06/22/17 19:42 Review of Systems ROS unobtainable: due to mental status Exam - Vital Signs Vital signs: Initial Vital Signs Temp Pulse Resp BP Pulse Ox 97.5 F L 67 20 190/80 96 01/16/18 22:48 01/16/18 22:48 01/16/18 22:48 01/16/18 22:48 01/16/18 22:48 Vital Signs - Last 8 Hours Temp Pulse Resp BP Pulse Ox 01/18/18 12:02 98.3 F 78 18 192/98 92 01/18/18 07:08 98.1 F 77 16 181/78 92 Intake and Output 01/17/18 01/18/18 01/18/18 23:59 07:59 15:59 Intake Total 1000 / 1000 120 / 120 Balance 1000 / 1000 120 / 120 Intake: IV Fluids 1000 / 1000 0.9 % Sodium Chloride 1,000 ML 1000 / 1000 @ 50 mls/hr IVC .Q20H [facility] Rx#: [id number] Oral 120 / 120 Other: Meal Breakfast Percent of Meal Consumed 50% # Voids 1 # Urine Diapers 1 0 0 # Bowel Movement Diapers 0 0 Weight 77.4 kg Blood Glucose* 126 123 94 Patient Weight 01/18/18 23:59 Weight 77.4 kg - General Appearance Exam: Patient will answer to her name. She is alert. She is not completely oriented. Blood pressure is 192/98. Lungs clear to auscultation. Heart regular rate and rhythm with a 2/6 EJECTION murmur. Abdomen shows normal bowel sounds buries masses, megaly or tenderness. There is no lower extremity swelling. There is a functioning AV fistula in the right upper extremity. Results - Lab Results 01/18/18 06:29 01/18/18 06:29 Most recent lab results ABG pH 7.44 pH Units (7.32-7.45) 01/16/18 23:49 ABG pCO2 48 mmHg (35-45) H 01/16/18 23:49 ABG pO2 178 mmHg (85-104) H 01/16/18 23:49 ABG HCO3 33 mEq/L (21-27) H 01/16/18 23:49 ABG O2 Saturation 100 % (95-98) H 01/16/18 23:49 Calcium 9.6 mg/dL (8.6-10.3) 01/18/18 06:29 Consult Discharge Plan - Plan Referrals: Sven Delong DO [Primary Care Provider] -
[2018-01-18] MEDS: amLODIPine 5 MG TABLET PO SCH ×2 (13:52→21:54)
--- NOTE | 2018-01-18 15:57 | EEG/EMG/Oth Biometrics Report ---
EEG Procedure Report Date of procedure: 01/18/18 EEG Procedure: Routine EEG Procedure Note: This EEG was acquired with standard international 10-20 electrode placement system with EKG recording. The back ground EEG activity was characterized by presence of theta, delta and slow alpha activity, intermittently, with best frequency up to 7-8 Hz. Background EEG activities appear symmetrical and reactive to eye openings. Sleep stages were not identified during the recording , although intermittent higher amplitude delta activities are seen. There are no electrographic seizures identified during this tracing and there are no epileptiform activity recorded during the record However, there are intermittent, diffuse synchronous sharp/slow wave activities noted, at times with semi rhythmic pattern lasting no more than 3-4 seconds in duration noted. The sharp/slow activity at times has triphasic morphology. Hyperventilation procedure not performed during the study. Photic stimulation produced no additional abnormalities. EKG tracing showed no intracranial abnormality. Impression: This is an abnormal EEG due to presence of diffuse background slowing. No electrographic seizures or epileptiform discharged identified. Clinical correlation: this EEG is consistent with diffuse neuronal dysfunction, likely secondary diffuse encephalopathy that can be caused by metabolic/toxic, electrolyte imbalance, anoxic/ischemic brain injury, hepatic/renal causes. Clinical correlation advised. Presence of tri-phasic slowing are commonly seen in patients with hepatic or renal insufficiency. No electrographic seizure noted.
--- NOTE | 2018-01-18 16:02 | Neurology Progress Note ---
Date of Encounter: 01/18/18 Time of Encounter: 15:59 Assessment and Plan (1) Altered mental status Current Visit: No Status: Resolved Likely secondary to medical encephalopathy especially renal evidenced on elevated creatinine of >7. Today she is more responsive and oriented to person and follows simple commands. She did not have starring spell that much today. Non focal neurological examination. EEG showed no evidence of electrographic seizure. patter most consistent with encephalopathy due to diffuse slowing with triphasic morphological diffuse back ground slowing. Recommend continue medical and supportive care. Qualifiers: Altered mental status type: somnolence Qualified Code(s): R40.0 - Somnolence Subjective Principal diagnosis: altered mental status Interval history: Patient seen and examined. Family members not at the bedside. She was sleeping but easily aroused and is able to maintain alertness. She makes eye contact and is able to answer simple questions. She denies significant discomforts. MRi of brain showed no acute intracranial abnormality. Poor image quality due to motion artifact. EEG completed and showed moderate background slowing with sharp/slow triphasic morphologic slowing at times semi rhythmic consistent with moderate encephalopathy. She is due to get hemodialysis today. She is doing a little better compared to yesterday Objective - Constitutional Vitals: Temp Pulse Resp BP Pulse Ox 98 F 68 15 181/82 93 01/18/18 15:13 01/18/18 15:13 01/18/18 15:13 01/18/18 15:13 01/18/18 15:13 - Neurological Exam Sensorimotor examination: Present: other (Grossly intact but unable ot assess thoroughly) Motor Examination: Present: grossly full strength in all extremities (Hand playground attendant are equal. 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 When flexing her neck she is resisting passive movement of her head. ) Reflex and gait examination: other (Gait not examined) Reflexes: Biceps: 2+, Triceps: 2+, Brachioradialis: 2+, Patella: 2+, Achilles: 2 + Mental Status Examination: Present: awake, alert, oriented to person (Able to tell me her daughters name only one time. Then stopped responding wide awake), oriented to place (Unable to tell), follows commands appropriately, answers questions appropriately (with yes of no), drowsy, opens eyes to voice, makes eye contact, follows simple commands (Do follow simple commands such as turning on her back at least trying) Cranial nerve examination: Present: PERRL, visual mensah intact (Unable to assess), corneal reflexes brisk symmetrically, sensory to face intact, mastication intact, no facial asymmetry is present, no dysarthria, hearing is intact symmetrically, soft palate elevates bilaterally upon phonation (Uanble to assess. Incooperative), gag reflex intact, flexes SCM and trapezius muscles symmetrically with full power, tongue protrudes midline, no atrophy or facial fasiculations present - VTE Documentation of Mechanical Device: Intermittent pneumatic compression device Results - Laboratory Findings CBC and BMP: 01/18/18 06:29 01/18/18 06:29 Abnormal lab findings: Abnormal lab results RBC 3.37 M/mcL (3.82-4.97) L 01/18/18 06:29 Hgb 10.4 g/dL (11.5-15.4) L 01/18/18 06: Hct 32.5 % (35.3-44.9) L 01/18/18:29 ABG pCO2 48 mmHg (35-45) H 01/16/18 23:49 ABG pO2 178 mmHg (85-104) H 01/16/18 23:49 ABG HCO3 33 mEq/L (21-27) H 01/16/18 23:49 ABG Total CO2 34 mEq/L (20-26) H 01/16/18 23:49 ABG O2 Saturation 100 % (95-98) H 01/16/18 23:49 ABG Base Excess 8 mEq/L (-2 to 3) H 01/16/18 23:49 Potassium 3.4 mEq/L (3.5-5.1) L 01/18/18: BUN 31 mg/dL (8-23) H 01/18/18:29 Creatinine 7.31 mg/dL (0.60-1.20) H 01/18/18 06:29 Est GFR ( Amer) 7 (> 60) L 01/18/18: Est GFR (Non-Af Amer) 5 (> 60) L 01/18/18 06:29 BUN/Creatinine Ratio 4 (6-26) L 01/18/18 06:29 Glucose 119 mg/dL (70-105) H 01/18/18 06:29 POC Glucose 164 mg/dL (70-99) H 01/17/18 16:32 Urine Protein >=300 mg/dL (Neg-Trace) H 01/16/18 23:26 Urine Glucose (UA) 100 mg/dL (Normal) H 01/16/18 23:26 Urine Blood Trace (Negative) H 01/16/18 23:26 Consult Discharge Plan - Plan Referrals: Sven Delong DO [Primary Care Provider] -
--- NOTE | 2018-01-18 16:45 | Internal Med Progress Note ---
Date of Encounter: 01/18/18 Time of Encounter: 13:00 - Assessment and plan (1) Altered mental status Current Visit: Yes Status: Acute Assessment and plan: New onset. Family states she sometimes gets like this when her blood glucose or potassium is off. At baseline she is able to ambulate and converse .She has episodes where she stares off and does not respond. She has some focal weakness She is oriented to nameCT of head was negative, MRI show no acute infarct, cartoid doppler with no stenotic plaque Neurology consulted - according to neurology note 01/17/2018-"Patient does carry history of tuberous sclerosis and positive family history of the disease and does seem to have baseline cognitive impairment which would be expected from her having tuberous sclerosis. " EEG completed per neurology note 01/18/2018- showed no evidence of electrographic seizure. patter most consistent with encephalopathy due to diffuse slowing with triphasic morphological diffuse back ground slowing. Recommend continue medical and supportive care. " Patient has been evaluated by PT/OT and recommending SNF placement- social insurance adviser has been consulted She has been evaluated by speech recommending mechanically altered diet Qualifiers: Altered mental status type: unspecified Qualified Code(s): R41.82 - Altered mental status, unspecified (2) End stage renal disease Current Visit: Yes Status: Chronic Assessment and plan: Nephrology has been consulted - [place] - She is undergo dialysis today. monitor intake and output avoid nephrotoxins (3) Diabetes mellitus Current Visit: Yes Status: Chronic Assessment and plan: Accuchecks AC/HS low dose SSI insulin . 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 (5) Decreased ambulation status Current Visit: Yes Status: Acute (6) Weakness of left upper extremity Current Visit: Yes Status: Acute Assessment and plan: Plan as per above. (7) DVT prophylaxis Current Visit: Yes Status: Acute Assessment and plan: Heparin subque - Time Spent With Patient Total time spent is greater than 50% in coordination of care (as documented) at patient's floor/unit and/or counseling patient: - Subjective Interval history: Patient was seen at bedside . She is alert oriented to name . Follow simple commands at times she stare off. There is no family at bedside. She is to have dialysis today, - Constitutional Vitals: Temp Pulse Resp BP Pulse Ox 98 F 68 15 181/82 93 01/18/18 15:13 01/18/18 15:13 01/18/18 15:13 01/18/18 15:13 01/18/18 15:13 General appearance: Present: A&O X 0, no acute distress, obese. Absent: answers questions appropriately - Head Head exam: Present: atraumatic, normocephalic - Eye Eye exam: Present: PERRL, conjuntiva pink, sclera anicteric Pupils: Present: PERRL - Neck Neck exam general surgery: Present: supple, trachea midline. Absent: lymphadenopathy - Respiratory Respiratory exam: Present: CTAB. Absent: accessory muscle use, rales, rhonchi, wheezes - Cardiovascular Cardiovascular exam: Present: RRR, +S1, +S2. Absent: diastolic murmur, gallop, rubs, systolic murmur - GI/Abdominal GI/Abdominal exam: Present: normal bowel sounds, soft, no peritoneal signs. Absent: distended, tenderness - Extremities Exam Extremities exam: Present: warm, radial pulses palpable and symmetrical. Absent : calf tenderness, cyanotic, pedal edema - Neurological Exam Neurological exam: Present: CN II-XII intact, oriented X3, no focal deficits. Absent: pronater drift, facial droop, speech deficit - Skin Skin exam: Present: dry, intact Internal Medicine: Result - Labs CBC & Chem 7: 01/18/18 06:29 01/18/18 06:29 Labs: Short CBC 01/18/18 Range/Units 06:29 WBC 7.4 (4.3-11.1) K/mcL Hgb 10.4 L (11.5-15.4) g/dL Hct 32.5 L (35.3-44.9) % Plt Count 192 (140-400) K/mcL Neutrophils # 5.2 (1.6-8.9) K/mcL BMP 01/18/18 06:29 Sodium 137 Potassium 3.4 L Chloride 99 Carbon Dioxide 28 BUN 31 H Creatinine 7.31 H Glucose 119 H Calcium 9.6 - ABG Interpretation ABG results: ABG ABG pH 7.44 pH Units (7.32-7.45) 01/16/18 23:49 ABG pCO2 48 mmHg (35-45) H 01/16/18 23:49 ABG pO2 178 mmHg (85-104) H 01/16/18 23:49 ABG O2 Saturation 100 % (95-98) H 01/16/18 23:49 PT/INR, D-dimer PT 11.3 Seconds (9.4-12.1) 01/16/18 23:17 - Impressions Impressions Brain MRI 01/17/18 02:30 IMPRESSION: 1. Severely limited study secondary to motion artifact. 2. No evidence of an acute infarct. 3. Cerebral parenchymal volume loss with mild chronic microvascular white matter ischemic disease, stable. 4. Ventriculomegaly. While this is likely related to involutional change, normal pressure hydrocephalus cannot be excluded. D/ / 01/17/2018 17:10:46 Anthony Gordon MD / [facility] Interpreting Provider: Anthony Gordon MD - VTE Documentation of Mechanical Device: Intermittent pneumatic compression device Consult Discharge Plan - Plan Referrals: Sven Delong DO [Primary Care Provider] -
[2018-01-18] MEDS: *HR* Heparin 5,000 UNIT/ML VIAL SQ SCH (21:54)
[2018-01-19 04:47] LABS: Calcium 9.3 mg/dL (8.6-10.3); Potassium 3.5 mEq/L (3.5-5.1)
[2018-01-19] MEDS: *HR* Heparin 5,000 UNIT/ML VIAL SQ SCH ×2 (05:11→19:23)
[2018-01-19] MEDS: Insulin LISPRO 300 UNITS/3 ML VIAL SQ SCH ×4 (08:06→20:49)
[2018-01-19 09:12] LABS: Basophils # 0.1 K/mcL (0.0-0.2); Basophils % 0.8 %; Eosinophils # 0.2 K/mcL (0.0-0.6); Hematocrit 33.1 % (35.3-44.9); Immature Granulocytes % 1.4 % (0-4); Lymphocytes # 1.4 K/mcL (0.6-4.6); Lymphocytes % 18.8 %; Mean Corpuscular HGB Conc 33.2 g/dL (31.6-35.5); Mean Corpuscular Hemoglobin 31.2 pg (28.0-33.3); Mean Corpuscular Volume 93.8 fL (83.0-100.0); Mean Platelet Volume 11.3 fL (9.4-12.4); Monocytes # 0.8 K/mcL (0.0-1.3); Monocytes % 10.8 %; Neutrophils # 4.7 K/mcL (1.6-8.9); Platelet Count 175 K/mcL (140-400); Red Blood Count 3.53 M/mcL (3.82-4.97); Red Cell Distribution Width 13.3 % (11.5-14.5); Segmented Neutrophils % 65.2 %
[2018-01-19] MEDS: amLODIPine 5 MG TABLET PO SCH ×2 (10:03→20:37)
[2018-01-19] MEDS: Renal Vitamin 1 MG CAPSULE PO SCH (10:03)
[2018-01-19] MEDS: Aspirin 81 MG TAB.CHEW PO SCH (10:03)
[2018-01-19] MEDS: Calcium Acetate 667 MG CAPSULE PO SCH ×2 (10:03→19:23)
--- NOTE | 2018-01-19 10:03 | Internal Med Progress Note ---
Date of Encounter: 01/19/18 Time of Encounter: 10:03 - Assessment and plan (1) Metabolic encephalopathy Current Visit: Yes Status: Acute Assessment and plan: This is new onset- At baseline she is able to ambulate and converse- Presently she has focal weakness - unable to stand or feed herself She has episodes where she stares off and does not respond. She is oriented to nameCT of head was negative, MRI show no acute infarct, cartoid doppler with no stenotic plaque Neurology consulted - according to neurology note 01/17/2018-"Patient does carry history of tuberous sclerosis and positive family history of the disease and does seem to have baseline cognitive impairment which would be expected from her having tuberous sclerosis. " EEG completed per neurology note 01/18/2018- showed no evidence of electrographic seizure. patten most consistent with encephalopathy due to diffuse slowing with triphasic morphological diffuse back ground slowing. Recommend continue medical and supportive care. " She has shown little improvement over the past few days and has required assistance for all ADLS She has been evaluated by PT/OT recommending SNF placement dt poor progression and requiring total assistance with ADL She was seen by speech and recommends mechanically altered diet Patient has been switched to inpatient - she is requiring cont medical and supportive care. (2) Altered mental status Current Visit: Yes Status: Acute Assessment and plan: New onset. Family states she sometimes gets like this when her blood glucose or potassium is off. At baseline she is able to ambulate and converse .She has episodes where she stares off and does not respond. She has some focal weakness She is oriented to nameCT of head was negative, MRI show no acute infarct, cartoid doppler with no stenotic plaque Neurology consulted - according to neurology note 01/17/2018-"Patient does carry history of tuberous sclerosis and positive family history of the disease and does seem to have baseline cognitive impairment which would be expected from her having tuberous sclerosis. " EEG completed per neurology note 01/18/2018- showed no evidence of electrographic seizure. patter most consistent with encephalopathy due to diffuse slowing with triphasic morphological diffuse back ground slowing. Recommend continue medical and supportive care. " Patient has been evaluated by PT/OT and recommending SNF placement- neonatal social worker has been consulted She has been evaluated by speech recommending mechanically altered diet Qualifiers: Altered mental status type: unspecified Qualified Code(s): R41.82 - Altered mental status, unspecified (3) End stage renal disease Current Visit: Yes Status: Chronic Assessment and plan: Nephrology has been consulted - [facility]- cont dialysis monitor intake and output avoid nephrotoxins monitor labs (4) Diabetes mellitus Current Visit: Yes Status: Chronic Assessment and plan: Accuchecks AC/HS low dose SSI insulin . Qualifiers: Diabetes mellitus type: type 2 Diabetes mellitus mcfp insulin use: without leave coordinator use Diabetes mellitus complication status: without complication Qualified Code(s): E11.9 - Type 2 diabetes mellitus without complications (5) Weakness of both lower extremities Current Visit: Yes Status: Acute Assessment and plan: Plan as per above. (6) Decreased ambulation status Current Visit: Yes Status: Acute Assessment and plan: Plan as per above. (7) Weakness of left upper extremity Current Visit: Yes Status: Acute Assessment and plan: Plan as per above. (8) Physical deconditioning Current Visit: Yes Status: Acute Assessment and plan: Requiring toal assistance with ADLs. cont with PT/OT will require leave coordinator therapy for strengthening (9) DVT prophylaxis Current Visit: Yes Status: Acute Assessment and plan: Heparin subque - Time Spent With Patient Total time spent is greater than 50% in coordination of care (as documented) at patient's floor/unit and/or counseling patient: - Subjective Interval history: Patient was seen at bedside . She is alert oriented to name . Follow simple commands at times she stare off. Oriented to name only. - Constitutional Vitals: Temp Pulse Resp BP Pulse Ox 99 F 64 16 146/83 95 01/19/18 06:24 01/19/18 06:24 01/19/18 06:24 01/19/18 06:24 01/19/18 06:24 General appearance: Present: A&O X 1, no acute distress, obese. Absent: answers questions appropriately - Head Head exam: Present: atraumatic, normocephalic - Eye Eye exam: Present: PERRL, conjuntiva pink, sclera anicteric Pupils: Present: PERRL - Neck Neck exam general surgery: Present: supple, trachea midline. Absent: lymphadenopathy - Respiratory Respiratory exam: Present: CTAB. Absent: accessory muscle use, rales, rhonchi, wheezes - Cardiovascular Cardiovascular exam: Present: RRR, +S1, +S2. Absent: diastolic murmur, gallop, rubs, systolic murmur - GI/Abdominal GI/Abdominal exam: Present: normal bowel sounds, soft, no peritoneal signs. Absent: distended, tenderness - Extremities Exam Extremities exam: Present: warm, radial pulses palpable and symmetrical. Absent : calf tenderness, cyanotic, pedal edema - Neurological Exam Neurological exam: Present: CN II-XII intact, oriented X3, no focal deficits. Absent: pronater drift, facial droop, speech deficit - Skin Skin exam: Present: dry, intact Internal Medicine: Result - Labs CBC & Chem 7: 01/19/18 07:56 01/19/18 04:00 Labs: Short CBC 01/19/18 Range/Units 07:56 WBC 7.2 (4.3-11.1) K/mcL Hgb 11.0 L (11.5-15.4) g/dL Hct 33.1 L (35.3-44.9) % Plt Count 175 (140-400) K/mcL Neutrophils # 4.7 (1.6-8.9) K/mcL BMP 01/19/18 04:00 Sodium 136 Potassium 3.5 Chloride 98 Carbon Dioxide 30 H BUN 15 Creatinine 4.92 H Glucose 103 Calcium 9.3 - ABG Interpretation ABG results: ABG ABG pH 7.44 pH Units (7.32-7.45) 01/16/18 23:49 ABG pCO2 48 mmHg (35-45) H 01/16/18 23:49 ABG pO2 178 mmHg (85-104) H 01/16/18 23:49 ABG O2 Saturation 100 % (95-98) H 01/16/18 23:49 PT/INR, D-dimer PT 11.3 Seconds (9.4-12.1) 01/16/18 23:17 - VTE Documentation of Mechanical Device: Intermittent pneumatic compression device Consult Discharge Plan - Plan Referrals: Sven Delong DO [Primary Care Provider] -
--- NOTE | 2018-01-19 11:01 | Nephrology Progress Note ---
Date of Encounter: 01/19/18 Time of Encounter: 10:50 Subjective Principal diagnosis: altered mental status Interval history: A/P- No HD today, keeping MWF schedule. Repeat EEG just completed. Awake, focuses, no verbal response to me though follows commands appropriately. Objective - Vital Signs Vital signs: Vital Signs Temp Pulse Resp BP Pulse Ox 01/19/18 06:24 99 F 64 16 146/83 95 01/19/18 04:06 98.7 F 67 17 171/68 93 01/18/18 23:25 98.1 F 65 17 146/51 93 01/18/18 19:14 98.0 F 16 148/79 01/18/18 18:45 128/57 01/18/18 18:30 126/58 01/18/18 18:15 134/64 01/18/18 18:00 144/72 01/18/18 17:45 142/65 01/18/18 17:30 149/62 01/18/18 17:15 155/66 01/18/18 17:00 142/65 01/18/18 16:45 154/74 01/18/18 16:30 161/78 01/18/18 16:15 179/90 01/18/18 16:00 186/77 01/18/18 15:45 97.7 F 18 181/79 01/18/18 15:13 98 F 68 15 181/82 93 01/18/18 12:02 98.3 F 78 18 192/98 92 Intake and Output 01/18/18 01/19/18 01/19/18 23:59 07:59 15:59 Intake Total 1000 / 1000 240 / 240 Output Total 3600 / 3600 Balance -2600 / -2600 240 / 240 Intake: IV Fluids 1000 / 1000 0.9 % Sodium Chloride 1,000 ML 1000 / 1000 @ 50 mls/hr IVC [facility] Rx#: [id number] Oral 240 / 240 Output: Urine 0 / 0 Total Dialysis (HD) Output 3600 / 3600 Other: Meal Breakfast Percent of Meal Consumed 75% Stool Size Large Stool Consistency soft Stool Characteristics Pasty Stool Color Brown Weight 78.9 kg Blood Glucose* 93 95 Hemodialysis Net Fluid Removed 3000 (mL) Patient Weight 01/19/18 23:59 Weight 78.9 kg - General Appearance General appearance: Present: well-developed, well-nourished, appears started age EENT: Present: mucous membranes moist Neck: Present: no JVD Respiratory: Present: clear Cardiology: Present: no edema, regular rate, regular rhythm Dialysis Vascular Access: Arteriovenous Fistula Gastrointestinal: Present: normoactive bowel sounds, no tenderness Integumentary: Present: warm and dry Psychiatric: Present: cooperative - Lab 01/19/18 07:56 01/19/18 04:00 Most recent lab results ABG pH 7.44 pH Units (7.32-7.45) 01/16/18 23:49 ABG pCO2 48 mmHg (35-45) H 01/16/18 23:49 ABG pO2 178 mmHg (85-104) H 01/16/18 23:49 ABG HCO3 33 mEq/L (21-27) H 01/16/18 23:49 ABG O2 Saturation 100 % (95-98) H 01/16/18 23:49 Calcium 9.3 mg/dL (8.6-10.3) 01/19/18 04:00 - VTE Documentation of Mechanical Device: Intermittent pneumatic compression device Consult Discharge Plan - Plan Referrals: Sven Delong DO [Primary Care Provider] -
--- NOTE | 2018-01-19 11:40 | EEG/EMG/Oth Biometrics Report ---
EEG Procedure Report Date of procedure: 01/19/18 EEG Procedure: Routine EEG Procedure Note: Report: This EEG was acquired with standard international 10-20 electrode placement system with EKG recording. The background activity during this EEG was characterized by presence of theta and delta activity with best frequency up to 7 Hz. The background activity was reactive to eye openings and movements. Sleep stages were present due to presence of K-complexes and vertex waves. There are no electrographic seizures identified during this tracing. There are no epileptiform discharged noted during this tracing. No focal slowing identified. There are intermittent higher amplitude Delta waves with triphasic morphology, improved compared to yesterdays recording. Photic stimulation produced no abnormalities. HV not performed during this study. EKG tracing showed no significant cardiac dysarrhythmia. Impression: This is an abnormal EEG due to presence of moderate diffuse background slowing. Clinical Correlation: This EEG is consistent with mild diffuse cerebral dysfunction that can be seen in patients with mild encephalopathy, metabolic/toxic, inflammatory, electrolyte derangement or anoxic/ischemic. No electrographic seizures seen. Clinical correlation suggested.
--- NOTE | 2018-01-19 11:45 | Neurology Progress Note ---
Date of Encounter: 01/19/18 Time of Encounter: 11:42 Assessment and Plan (1) Altered mental status Current Visit: No Status: Resolved Patient is encephalopathic and this is likely medically related and she is better in terms of her mental status compared to yesterday. Repeat EEG showed again no seizures no epileptiform discharges and diffuse slowing which appears slightly improved from yesterday. Do not feel there is new neurological pathology going on and recommend continue medical and supportive care Qualifiers: Altered mental status type: somnolence Qualified Code(s): R40.0 - Somnolence Subjective Principal diagnosis: altered mental status Interval history: Patient seen and examined. She is sitting in the sofa comfortably. She is easily arousabe and follows command and her hand photography colorist are equal. She answers questions but unable to talk clearly and her mental status appears improving in that she is more alert and following commands better. Recommended repeat EEG which showed again diffuse back slowing improved from yesterday's EEG and there is no seizure or epileptiform discharges. intermittent delta with triphasic morphology still seen and this would be consistent with her renal encephalopathy. Objective - Constitutional Vitals: Temp Pulse Resp BP Pulse Ox 97.7 F 66 18 157/78 95 01/19/18 11:35 01/19/18 11:35 01/19/18 11:35 01/19/18 11:35 01/19/18 11:35 - Neurological Exam Sensorimotor examination: Present: other (Grossly intact but unable ot assess thoroughly) Motor Examination: Present: grossly full strength in all extremities (Hand photography colorist are equal. 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 When flexing her neck she is resisting passive movement of her head. ) Reflex and gait examination: other (Gait not examined) Mental Status Examination: Present: awake, alert, oriented to person (Able to answer questions with low voice and difficut to converse), follows commands appropriately, answers questions appropriately (with yes of no), opens eyes to voice, makes eye contact, follows simple commands (Do follow simple commands such as turning on her back at least trying) Cranial nerve examination: Present: PERRL, visual mensah intact (Unable to assess), corneal reflexes brisk symmetrically, sensory to face intact, mastication intact, no facial asymmetry is present, no dysarthria, hearing is intact symmetrically, soft palate elevates bilaterally upon phonation (Uanble to assess. Incooperative), gag reflex intact, flexes SCM and trapezius muscles symmetrically with full power, tongue protrudes midline, no atrophy or facial fasiculations present - VTE Documentation of Mechanical Device: Intermittent pneumatic compression device Results - Laboratory Findings CBC and BMP: 01/19/18 07:56 01/19/18 04:00 Abnormal lab findings: Abnormal lab results RBC 3.53 M/mcL (3.82-4.97) L 01/19/18 07:56 Hgb 11.0 g/dL (11.5-15.4) L 01/19/18 07:56 Hct 33.1 % (35.3-44.9) L 01/19/18 07:56 ABG pCO2 48 mmHg (35-45) H 01/16/18 23:49 ABG pO2 178 mmHg (85-104) H 01/16/18 23:49 ABG HCO3 33 mEq/L (21-27) H 01/16/18 23:49 ABG Total CO2 34 mEq/L (20-26) H 01/16/18 23:49 ABG O2 Saturation 100 % (95-98) H 01/16/18 23:49 ABG Base Excess 8 mEq/L (-2 to 3) H 01/16/18 23:49 Carbon Dioxide 30 mEq/L (23-29) H 01/19/18 04:00 Creatinine 4.92 mg/dL (0.60-1.20) H 01/19/18 04:00 Est GFR ( Amer) 10 (> 60) L 01/19/18 04:00 Est GFR (Non-Af Amer) 9 (> 60) L 01/19/18 04:00 BUN/Creatinine Ratio 3 (6-26) L 01/19/18 04:00 Urine Protein >=300 mg/dL (Neg-Trace) H 01/16/18 23:26 Urine Glucose (UA) 100 mg/dL (Normal) H 01/16/18 23:26 Urine Blood Trace (Negative) H 01/16/18 23:26 - Diagnostic Findings Additional findings: EV/EV echocardiogram Impressions: LVEF 65%. Diastolic dysfunction with elevated filling pressures. Severely dilated left atrium. Mild aortic regurgitation. Aortic valve sclerosis. Mild-moderate mitral regurgitation. Mild tricuspid regurgitation. Mild pulmonary hypertension. No evidence of PFO with agitated saline contrast. Report: This EEG was acquired with standard international 10-20 electrode placement system with EKG recording. The background activity during this EEG was characterized by presence of theta and delta activity with best frequency up to 7 Hz. The background activity was reactive to eye openings and movements. Sleep stages were present due to presence of K-complexes and vertex waves. There are no electrographic seizures identified during this tracing. There are no epileptiform discharged noted during this tracing. No focal slowing identified. There are intermittent higher amplitude Delta waves with triphasic morphology, improved compared to yesterdays recording. Photic stimulation produced no abnormalities. HV not performed during this study. EKG tracing showed no significant cardiac dysarrhythmia. Impression: This is an abnormal EEG due to presence of moderate diffuse background slowing. Clinical Correlation: This EEG is consistent with mild diffuse cerebral dysfunction that can be seen in patients with mild encephalopathy, metabolic/toxic, inflammatory, electrolyte derangement or anoxic/ischemic. No electrographic seizures seen. Clinical correlation suggested. Consult Discharge Plan - Plan Referrals: Sven Delong DO [Primary Care Provider] -
[2018-01-19] MEDS: 0.9 % Sodium Chloride 1,000 ML IVC SCH (14:45)
--- NOTE | 2018-01-19 16:05 | Electrocardiograph Report ---
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
[2018-01-20 05:30] LABS: Basophils % 0.6 %; Eosinophils # 0.2 K/mcL (0.0-0.6); Eosinophils % 3.1 %; Hematocrit 32.3 % (35.3-44.9); Hemoglobin 10.8 g/dL (11.5-15.4); Immature Granulocytes % 0.7 % (0-4); Lymphocytes # 1.5 K/mcL (0.6-4.6); Lymphocytes % 21.8 %; Mean Corpuscular HGB Conc 33.4 g/dL (31.6-35.5); Mean Corpuscular Hemoglobin 31.9 pg (28.0-33.3); Mean Corpuscular Volume 95.3 fL (83.0-100.0); Mean Platelet Volume 11.6 fL (9.4-12.4); Monocytes # 0.7 K/mcL (0.0-1.3); Monocytes % 10.8 %; Neutrophils # 4.3 K/mcL (1.6-8.9); Platelet Count 176 K/mcL (140-400); Red Blood Count 3.39 M/mcL (3.82-4.97); Red Cell Distribution Width 13.3 % (11.5-14.5)
[2018-01-20 05:45] LABS: Calcium 9.7 mg/dL (8.6-10.3); Potassium 3.5 mEq/L (3.5-5.1)
[2018-01-20] MEDS: *HR* Heparin 5,000 UNIT/ML VIAL SQ SCH ×2 (06:00→17:07)
[2018-01-20] MEDS ORDERED: hydrALAZINE 10 MG TABLET PO ONE (06:29)
[2018-01-20] MEDS ORDERED: 0.9 % Sodium Chloride 250 ML IVC PRN (07:36)
[2018-01-20] MEDS ORDERED: 0.9 % Sodium Chloride 1,000 ML PRIME SCH (07:45)
[2018-01-20] MEDS: Insulin LISPRO 300 UNITS/3 ML VIAL SQ SCH ×4 (08:24→20:58)
[2018-01-20] MEDS: Renal Vitamin 1 MG CAPSULE PO SCH (08:26)
[2018-01-20] MEDS: amLODIPine 5 MG TABLET PO SCH ×2 (08:26→21:00)
[2018-01-20] MEDS: Calcium Acetate 667 MG CAPSULE PO SCH ×2 (08:26→15:39)
[2018-01-20] MEDS: Aspirin 81 MG TAB.CHEW PO SCH (08:27)
--- NOTE | 2018-01-20 10:36 | Internal Med Progress Note ---
Date of Encounter: 01/20/18 Time of Encounter: 10:35 - Assessment and plan (1) Metabolic encephalopathy Current Visit: Yes Status: Acute Assessment and plan: This is new onset- At baseline she is able to ambulate and converse- Presently she has focal weakness - unable to stand or feed herself She has episodes where she stares off and does not respond. She is oriented to nameCT of head was negative, MRI show no acute infarct, cartoid doppler with no stenotic plaque Neurology consulted - according to neurology note 01/17/2018-"Patient does carry history of tuberous sclerosis and positive family history of the disease and does seem to have baseline cognitive impairment which would be expected from her having tuberous sclerosis. " EEG completed per neurology note 01/18/2018- showed no evidence of electrographic seizure. patten most consistent with encephalopathy due to diffuse slowing with triphasic morphological diffuse back ground slowing. Recommend continue medical and supportive care. " She has shown little improvement over the past few days and has required assistance for all ADLS-today she seems more alert she follows simple commands and is oriented to name and place She has been evaluated by PT/OT recommending SNF placement she has been accepted at [facility], [place] and will be discharged to ECF on Tuesday She was seen by speech and recommends mechanically altered diet (2) Altered mental status Current Visit: Yes Status: Acute Assessment and plan: See above Qualifiers: Altered mental status type: unspecified Qualified Code(s): R41.82 - Altered mental status, unspecified (3) End stage renal disease Current Visit: Yes Status: Chronic Assessment and plan: Nephrology has been consulted - [place]- cont dialysis -patient had dialysis today and tolerated the procedure well monitor intake and output avoid nephrotoxins monitor labs (4) Diabetes mellitus Current Visit: Yes Status: Chronic Assessment and plan: Blood glucose has been stable Accuchecks AC/HS low dose SSI insulin . Qualifiers: Diabetes mellitus type: type 2 Diabetes mellitus terminal clerk insulin use: without chcf use Diabetes mellitus complication status: without complication Qualified Code(s): E11.9 - Type 2 diabetes mellitus without complications (5) Weakness of both lower extremities Current Visit: Yes Status: Acute Assessment and plan: Plan as per above. (6) Decreased ambulation status Current Visit: Yes Status: Acute Assessment and plan: Plan as per above. (7) Weakness of left upper extremity Current Visit: Yes Status: Acute Assessment and plan: Plan as per above. (8) Physical deconditioning Current Visit: Yes Status: Acute Assessment and plan: Requiring toal assistance with ADLs. cont with PT/OT will require terminal clerk therapy for strengthening (9) DVT prophylaxis Current Visit: Yes Status: Acute Assessment and plan: Heparin subque - Time Spent With Patient Total time spent is greater than 50% in coordination of care (as documented) at patient's floor/unit and/or counseling patient: - Subjective Interval history: Patient was seen at bedside, no family available . She is alert oriented to name and place . Follow simple commands at times she stare off. She did have dialysis today and tolerated procedure well. Family did arrive while patient was in ironing worker did speak with daughter - Constitutional Vitals: Temp Pulse Resp BP Pulse Ox 98.0 F 76 15 172/74 96 01/20/18 06:12 01/20/18 06:12 01/20/18 06:12 01/20/18 06:12 01/20/18 06:12 General appearance: Present: A&O X 1, no acute distress, obese. Absent: answers questions appropriately - Head Head exam: Present: atraumatic, normocephalic - Eye Eye exam: Present: PERRL, conjuntiva pink, sclera anicteric Pupils: Present: PERRL - Neck Neck exam general surgery: Present: supple, trachea midline. Absent: lymphadenopathy - Respiratory Respiratory exam: Present: CTAB. Absent: accessory muscle use, rales, rhonchi, wheezes - Cardiovascular Cardiovascular exam: Present: RRR, +S1, +S2. Absent: diastolic murmur, gallop, rubs, systolic murmur - GI/Abdominal GI/Abdominal exam: Present: normal bowel sounds, soft, no peritoneal signs. Absent: distended, tenderness - Extremities Exam Extremities exam: Present: warm, radial pulses palpable and symmetrical. Absent : calf tenderness, cyanotic, pedal edema - Neurological Exam Neurological exam: Present: CN II-XII intact, oriented X3, no focal deficits. Absent: pronater drift, facial droop, speech deficit - Skin Skin exam: Present: dry, intact Internal Medicine: Result - Labs CBC & Chem 7: 01/20/18 04:13 01/20/18 04:13 Labs: Short CBC 01/20/18 Range/Units 04:13 WBC 6.8 (4.3-11.1) K/mcL Hgb 10.8 L (11.5-15.4) g/dL Hct 32.3 L (35.3-44.9) % Plt Count 176 (140-400) K/mcL Neutrophils # 4.3 (1.6-8.9) K/mcL BMP 01/20/18 04:13 Sodium 138 Potassium 3.5 Chloride 98 Carbon Dioxide 29 BUN 24 H Creatinine 6.58 H Glucose 108 H Calcium 9.7 - ABG Interpretation ABG results: ABG ABG pH 7.44 pH Units (7.32-7.45) 01/16/18 23:49 ABG pCO2 48 mmHg (35-45) H 01/16/18 23:49 ABG pO2 178 mmHg (85-104) H 01/16/18 23:49 ABG O2 Saturation 100 % (95-98) H 01/16/18 23:49 PT/INR, D-dimer PT 11.3 Seconds (9.4-12.1) 01/16/18 23:17 - VTE Documentation of Mechanical Device: Intermittent pneumatic compression device Consult Discharge Plan - Plan Referrals: Sven Delong, [Primary Care Provider] -
--- NOTE | 2018-01-20 11:09 | Neurology Progress Note ---
Date of Encounter: 01/20/18 Time of Encounter: 10:00 Assessment and Plan (1) Altered mental status Current Visit: No Status: Resolved Patient continues to be encephalopathic but is improving. EEG consistently showed mild diffuse cerebral dysfunction. No new neurological pathology. Recommend continuing medical and supportive care. Qualifiers: Altered mental status type: somnolence Qualified Code(s): R40.0 - Somnolence Subjective Principal diagnosis: altered mental status Interval history: Patient seen and examined. She was just starting dialysis when I saw her. Mental status appears to be improving. She is alert and able to follow commands. Objective - Constitutional Vitals: Temp Pulse Resp BP Pulse Ox 98.0 F 76 15 172/74 96 01/20/18 06:12 01/20/18 06:12 01/20/18 06:12 01/20/18 06:12 01/20/18 06:12 - Other Additional findings: CONSTITUTIONAL: Well-developed and well-nourished. Comfortable and in no acute distress. CARDIOVASCULAR: Regular rate and rhythm. +S1 and S2. CHEST: Normal work of breathing. NEURO: Mental Status: Alert and oriented x3. Follows commands and answers questions with yes or no Cranial Nerves: PERRL. Symmetrical facial strength. Facial sensation intact. No dysarthria. Hearing intact. Motor: 5/5 in bilateral upper extremities Sensation intact. - VTE Documentation of Mechanical Device: Intermittent pneumatic compression device Results - Laboratory Findings CBC and BMP: 01/20/18 04:13 01/20/18 04:13 Abnormal lab findings: Abnormal lab results RBC 3.39 M/mcL (3.82-4.97) L 01/20/18 04:13 Hgb 10.8 g/dL (11.5-15.4) L 01/20/18 04:13 Hct 32.3 % (35.3-44.9) L 01/20/18 04:13 ABG pCO2 48 mmHg (35-45) H 01/16/18 23:49 ABG pO2 178 mmHg (85-104) H 01/16/18 23:49 ABG HCO3 33 mEq/L (21-27) H 01/16/18 23:49 ABG Total CO2 34 mEq/L (20-26) H 01/16/18 23:49 ABG O2 Saturation 100 % (95-98) H 01/16/18 23:49 ABG Base Excess 8 mEq/L (-2 to 3) H 01/16/18 23:49 BUN 24 mg/dL (8-23) H 01/20/18 04:13 Creatinine 6.58 mg/dL (0.60-1.20) H 01/20/18 04:13 Est GFR ( Amer) 7 (> 60) L 01/20/18 04:13 Est GFR (Non-Af Amer) 6 (> 60) L 01/20/18 04:13 BUN/Creatinine Ratio 4 (6-26) L 01/20/18 04:13 Glucose 108 mg/dL (70-105) H 01/20/18 04:13 POC Glucose 132 mg/dL (70-99) H 01/19/18 20:05 Urine Protein >=300 mg/dL (Neg-Trace) H 01/16/18 23:26 Urine Glucose (UA) 100 mg/dL (Normal) H 01/16/18 23:26 Urine Blood Trace (Negative) H 01/16/18 23:26 - Diagnostic Findings Additional findings: Cervical Spine CT 01/16/18 23:17 IMPRESSION: No acute abnormality of the cervical spine. Diffuse demineralization. D/ / Garland Morin MD / Garland Morin MD Interpreting Provider: Garland Morin MD Head CT 01/16/18 23:17 IMPRESSION: No acute intracranial abnormality. D/ / Garland Morin MD / Garland Morin MD Interpreting Provider: Garland Morin MD Brain MRI 01/17/18 02:30 IMPRESSION: 1. Severely limited study secondary to motion artifact. 2. No evidence of an acute infarct. 3. Cerebral parenchymal volume loss with mild chronic microvascular white matter ischemic disease, stable. 4. Ventriculomegaly. While this is likely related to involutional change, normal pressure hydrocephalus cannot be excluded. D/ / 01/17/2018 17:10:46 Anthony Gordon MD / gerardo Interpreting Provider: Anthony Gordon MD Consult Discharge Plan - Plan Referrals: Sven Delong, [Primary Care Provider] -
[2018-01-20] MEDS: 0.9 % Sodium Chloride 1,000 ML IVC SCH (12:05)
--- NOTE | 2018-01-20 13:02 | Nephrology Progress Note ---
Date of Encounter: 01/20/18 Time of Encounter: 11:50 - Assessment and Plan (1) End stage renal disease Current Visit: Yes Status: Chronic HD today, orders given. Will increase Lisinopril 20mg BID. Subjective Principal diagnosis: altered mental status Interval history: Seen on HD. Alert, knows at [place]. SBP 150-170. Objective - Vital Signs Vital signs: Vital Signs Temp Pulse Resp BP Pulse Ox 01/20/18 06:12 98.0 F 76 15 172/74 96 01/20/18 04:29 97.6 F 70 20 177/68 93 01/19/18 22:31 98.0 F 70 16 161/84 95 Intake and Output 01/19/18 01/20/18 01/20/18 23:59 07:59 15:59 Intake Total 240 / 240 Balance 240 / 240 Intake: Oral 240 / 240 Other: Meal Breakfast Percent of Meal Consumed 70% # Urine Diapers 1 1 Weight 77.3 kg Blood Glucose* 109 Patient Weight 01/20/18 23:59 Weight 77.3 kg - General Appearance General appearance: Present: well-developed, well-nourished, appears started age EENT: Present: mucous membranes moist Neck: Present: no JVD Respiratory: Present: clear Cardiology: Present: no edema, regular rate, regular rhythm Dialysis Vascular Access: Arteriovenous Fistula Gastrointestinal: Present: normoactive bowel sounds, no tenderness Integumentary: Present: warm and dry Psychiatric: Present: mood/affect appropriate, cooperative - Lab 01/20/18 04:13 01/20/18 04:13 Most recent lab results ABG pH 7.44 pH Units (7.32-7.45) 01/16/18 23:49 ABG pCO2 48 mmHg (35-45) H 01/16/18 23:49 ABG pO2 178 mmHg (85-104) H 01/16/18 23:49 ABG HCO3 33 mEq/L (21-27) H 01/16/18 23:49 ABG O2 Saturation 100 % (95-98) H 01/16/18 23:49 Calcium 9.7 mg/dL (8.6-10.3) 01/20/18 04:13 - VTE Documentation of Mechanical Device: Intermittent pneumatic compression device Consult Discharge Plan - Plan Referrals: Sven Delong DO [Primary Care Provider] -
[2018-01-20] MEDS ORDERED: 0.9 % Sodium Chloride 2,000 ML ONE (13:49)
[2018-01-21] MEDS: *HR* Heparin 5,000 UNIT/ML VIAL SQ SCH ×2 (05:50→17:10)
[2018-01-21] MEDS: 0.9 % Sodium Chloride 1,000 ML IVC SCH (05:51)
[2018-01-21 06:00] LABS: Hematocrit 34.9 % (35.3-44.9); Hemoglobin 11.8 g/dL (11.5-15.4); Mean Corpuscular HGB Conc 33.8 g/dL (31.6-35.5); Mean Corpuscular Hemoglobin 32.2 pg (28.0-33.3); Mean Corpuscular Volume 95.4 fL (83.0-100.0); Platelet Count 170 K/mcL (140-400); Red Blood Count 3.66 M/mcL (3.82-4.97); Red Cell Distribution Width 13.3 % (11.5-14.5)
[2018-01-21 06:20] LABS: Calcium 10.2 mg/dL (8.6-10.3); Potassium 3.6 mEq/L (3.5-5.1)
[2018-01-21] MEDS: Insulin LISPRO 300 UNITS/3 ML VIAL SQ SCH ×4 (07:37→21:25)
[2018-01-21] MEDS: Aspirin 81 MG TAB.CHEW PO SCH (07:40)
[2018-01-21] MEDS: Renal Vitamin 1 MG CAPSULE PO SCH (07:42)
[2018-01-21] MEDS: amLODIPine 5 MG TABLET PO SCH ×2 (07:42→21:24)
[2018-01-21] MEDS: Calcium Acetate 667 MG CAPSULE PO SCH ×2 (07:42→17:10)
--- NOTE | 2018-01-21 09:08 | Nephrology Progress Note ---
Date of Encounter: 01/21/18 Time of Encounter: 08:35 - Assessment and Plan (1) End stage renal disease Current Visit: Yes Status: Chronic No HD today, keeping MWF schedule. Subjective Principal diagnosis: altered mental status Interval history: Sitting up in chair, feeding self breakfast. Alert, knows at [place]. SBP 120-130. Objective - Vital Signs Vital signs: Vital Signs Temp Pulse Resp BP Pulse Ox 01/21/18 07:54 95 01/21/18 06:37 97.7 F 67 18 163/80 95 01/21/18 03:09 98.2 F 78 16 139/74 93 01/20/18 22:38 98.6 F 84 16 126/74 94 01/20/18 18:40 97.4 F L 87 16 137/78 97 01/20/18 15:15 98.8 F 86 16 134/84 95 01/20/18 13:51 97.4 F L 18 117/72 01/20/18 13:00 131/67 01/20/18 12:45 141/63 01/20/18 12:30 155/67 01/20/18 12:15 154/80 01/20/18 12:00 148/73 01/20/18 11:45 133/69 01/20/18 11:30 144/69 01/20/18 11:15 144/68 01/20/18 11:00 132/67 01/20/18 10:45 148/70 01/20/18 10:30 141/64 01/20/18 10:15 146/62 01/20/18 10:00 97.4 F L 18 137/57 Intake and Output 01/20/18 01/21/18 01/21/18 23:59 07:59 15:59 Output Total 0 / 0 Balance 0 / 0 Output: Urine 0 / 0 Other: # Urine Diapers 1 Weight 77.2 kg Blood Glucose* 168 104 Patient Weight 01/21/18 23:59 Weight 77.2 kg - General Appearance General appearance: Present: well-developed, well-nourished, appears started age EENT: Present: mucous membranes moist Neck: Present: no JVD Respiratory: Present: clear Cardiology: Present: no edema, regular rate, regular rhythm Dialysis Vascular Access: Arteriovenous Fistula Gastrointestinal: Present: normoactive bowel sounds, no tenderness Integumentary: Present: warm and dry Psychiatric: Present: mood/affect appropriate, cooperative - Lab 01/21/18 05:40 01/21/18 05:40 Most recent lab results ABG pH 7.44 pH Units (7.32-7.45) 01/16/18 23:49 ABG pCO2 48 mmHg (35-45) H 01/16/18 23:49 ABG pO2 178 mmHg (85-104) H 01/16/18 23:49 ABG HCO3 33 mEq/L (21-27) H 01/16/18 23:49 ABG O2 Saturation 100 % (95-98) H 01/16/18 23:49 Calcium 10.2 mg/dL (8.6-10.3) 01/21/18 05:40 - VTE Documentation of Mechanical Device: Intermittent pneumatic compression device Consult Discharge Plan - Plan Referrals: Sven Delong DO [Primary Care Provider] -
--- NOTE | 2018-01-21 09:20 | Internal Med Progress Note ---
Date of Encounter: 01/21/18 Time of Encounter: 09:18 - Assessment and plan (1) Metabolic encephalopathy Current Visit: Yes Status: Acute Assessment and plan: She is more alert and interactive oriented 2 attempts to feed herself She has episodes where she stares off and does not respond. 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 " EEG completed per neurology note 01/18/2018- showed no evidence of electrographic seizure. patten most consistent with encephalopathy due to diffuse slowing with triphasic morphological diffuse back ground slowing. Recommend continue medical and supportive care. " She has been evaluated by PT/OT recommending SNF placement she has been accepted at [facility] and will be discharged to ECF on Tuesday She was seen by speech and recommends mechanically altered diet (2) Altered mental status Current Visit: Yes Status: Acute Assessment and plan: See above Qualifiers: Altered mental status type: unspecified Qualified Code(s): R41.82 - Altered mental status, unspecified (3) End stage renal disease Current Visit: Yes Status: Chronic Assessment and plan: Nephrology has been consulted - [place] Tuesday monitor intake and output avoid nephrotoxins monitor labs (4) Diabetes mellitus Current Visit: Yes Status: Chronic Assessment and plan: Blood glucose has been stable Accuchecks AC/HS low dose SSI insulin . Qualifiers: Diabetes mellitus type: type 2 Diabetes mellitus buttermaker continuous churn insulin use: without care home use Diabetes mellitus complication status: without complication Qualified Code(s): E11.9 - Type 2 diabetes mellitus without complications (5) Weakness of both lower extremities Current Visit: Yes Status: Acute Assessment and plan: Plan as per above. (6) Decreased ambulation status Current Visit: Yes Status: Acute Assessment and plan: Plan as per above. (7) Weakness of left upper extremity Current Visit: Yes Status: Acute Assessment and plan: Plan as per above. (8) Physical deconditioning Current Visit: Yes Status: Acute Assessment and plan: Requiring toal assistance with ADLs. cont with PT/OT will require buttermaker continuous churn therapy for strengthening (9) DVT prophylaxis Current Visit: Yes Status: Acute Assessment and plan: Heparin subque - Time Spent With Patient Total time spent is greater than 50% in coordination of care (as documented) at patient's floor/unit and/or counseling patient: - Subjective Interval history: Patient was seen at bedside, no family available. Patient is sitting up in the chair. Much improved, oriented x2 Follow simple commands. She will be discharged to [facility] tomorrow . - Constitutional Vitals: Temp Pulse Resp BP Pulse Ox 97.7 F 67 18 163/80 95 01/21/18 06:37 01/21/18 06:37 01/21/18 06:37 01/21/18 06:37 01/21/18 07:54 General appearance: Present: cooperative, A&O X 2, pleasant, no acute distress, obese. Absent: answers questions appropriately - Head Head exam: Present: atraumatic, normocephalic - Eye Eye exam: Present: PERRL, conjuntiva pink, sclera anicteric Pupils: Present: PERRL - Neck Neck exam general surgery: Present: supple, trachea midline. Absent: lymphadenopathy - Respiratory Respiratory exam: Present: CTAB. Absent: accessory muscle use, rales, rhonchi, wheezes - Cardiovascular Cardiovascular exam: Present: RRR, +S1, +S2. Absent: diastolic murmur, gallop, rubs, systolic murmur - GI/Abdominal GI/Abdominal exam: Present: normal bowel sounds, soft, no peritoneal signs. Absent: distended, tenderness - Extremities Exam Extremities exam: Present: warm, radial pulses palpable and symmetrical. Absent : calf tenderness, cyanotic, pedal edema - Neurological Exam Neurological exam: Present: alert, CN II-XII intact, no focal deficits. Absent : pronater drift, facial droop, speech deficit - Skin Skin exam: Present: dry, intact Internal Medicine: Result - Labs CBC & Chem 7: 01/21/18 05:40 01/21/18 05:40 Labs: Short CBC 01/21/18 Range/Units 05:40 WBC 6.0 (4.3-11.1) K/mcL Hgb 11.8 (11.5-15.4) g/dL Hct 34.9 L (35.3-44.9) % Plt Count 170 (140-400) K/mcL BMP 01/21/18 05:40 Sodium 140 Potassium 3.6 Chloride 98 Carbon Dioxide 33 H BUN 18 Creatinine 5.13 H Glucose 113 H Calcium 10.2 - ABG Interpretation ABG results: ABG ABG pH 7.44 pH Units (7.32-7.45) 01/16/18 23:49 ABG pCO2 48 mmHg (35-45) H 01/16/18 23:49 ABG pO2 178 mmHg (85-104) H 01/16/18 23:49 ABG O2 Saturation 100 % (95-98) H 01/16/18 23:49 PT/INR, D-dimer PT 11.3 Seconds (9.4-12.1) 01/16/18 23:17 - VTE Documentation of Mechanical Device: Intermittent pneumatic compression device Consult Discharge Plan - Plan Referrals: Sven Delong DO [Primary Care Provider] -
[2018-01-22] MEDS: 0.9 % Sodium Chloride 1,000 ML IVC SCH (05:20)
[2018-01-22] MEDS: *HR* Heparin 5,000 UNIT/ML VIAL SQ SCH (05:27)
[2018-01-22 06:43] VITALS: BP 154/77
[2018-01-22 08:14] LABS: Hematocrit 34.5 % (35.3-44.9); Hemoglobin 11.4 g/dL (11.5-15.4); Mean Corpuscular Hemoglobin 30.9 pg (28.0-33.3); Mean Corpuscular Volume 93.5 fL (83.0-100.0); Mean Platelet Volume 11.3 fL (9.4-12.4); Platelet Count 175 K/mcL (140-400); Red Blood Count 3.69 M/mcL (3.82-4.97); Red Cell Distribution Width 13.4 % (11.5-14.5)
--- NOTE | 2018-01-22 08:33 | Discharge Summary ---
- NOTES TO OUTPATIENT PROVIDER Notes to Outpatient Provider: follow up with neurology. 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 Greer is a 77 year old female past medical history of cancer or diabetes end stage renal disease on dialysis Tuesday hypertension. Patient presented to the emergency room with acute onset of altered mental state. Daughter reports that over the past few days her mental status has been worsening normally patient is ambulatory and able to converse however she has been experiencing B LE weakness and is unable to follow directions or perform simple ADLs. She is oriented to name only. CT of head is negative for any intracranial abnormality MRI with no acute infarct echo with EF of 65% diastolic dysfunction severely dilated left atrium and mild aortic regurgitation aortic valve sclerosis mild to moderate mitral regurgitation Tatian mild tricuspid regurgitation and no pulmonary hypertension no evidence of P FO carotid duplex with nonstenotic plaque bilaterally Patient was admitted and was seen by neurology-according to note 01/17/18 patient is a history of tuberous sclerosis and a positive family history of disease does seem to have baseline cognitive impairment which would be expected patients with 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 EEG was completed which showed no evidence of electrographic seizure pattern most consistent with encephalopathy neurology recommending continued medical supportive care. Patient was also seen by nephrology and received dialysis which she tolerated well. Every time her neuro status did improve however she continued to be very weak she was evaluated by PT and OT who did recommend ECF placement for rehabilitation. [facility] and will be transferred to ECF for further treatment. Patient's daughter is aware of diagnosis and treatment planned and agrees to further treatment ECF. Patient is hemodynamically stable and ready for discharge Discharge discussed with: patient - Time Spent with Patient Total time spent providing and/or coordinating discharge services: - Discharge Medications Home Medications: Aspirin [Adult Aspirin Regimen] 81 mg PO DAILY 01/17/18 [History] Atorvastatin [Lipitor] 40 mg PO HS 01/17/18 [History] B Complex W-C No.20/Folic Acid [Nephrocaps Softgel] 1 mg PO DAILY 01/17/18 [ History] Calcium Acetate [Phos-LO] 667 mg PO BID 01/17/18 [History] Cinacalcet HCl [Sensipar] 60 mg PO DAILY 01/17/18 [History] Lisinopril [Zestril] 10 mg PO DAILY 01/17/18 [History] Megestrol Acetate [Megace] 40 mg PO BID 01/17/18 [History] Metoclopramide [Reglan] 10 mg PO QIDAC 01/17/18 [History] Metoprolol Tartrate [Lopressor] 12.5 mg PO BID 01/17/18 [History] Omeprazole [PriLOSEC] 20 mg PO BID 01/17/18 [History] Allergies/Adverse Reactions: 3 Allergy/AdvReac Type Severity Reaction Status Date / Time sulfamethoxazole Allergy Hives Verified 06/22/17 19:42 [From ] trimethoprim [From ] Allergy Hives Verified 06/22/17 19:42 Date of admission: 01/19/18 20:27 Primary care physician: Sven Delong, Consults: 01/20/18 07:45 Consult to Dialysis [CONS] ONCE Discharging clinician: Rosalind Lopez Anticipated date of discharge: 01/22/18 - Constitutional Vitals: Temp Pulse Resp BP Pulse Ox 98.5 F 69 18 154/77 96 01/22/18 06:40 01/22/18 06:40 01/22/18 06:40 01/22/18 06:40 01/22/18 06:40 General appearance: Present: cooperative, A&O X 2, pleasant, no acute distress, obese. Absent: answers questions appropriately - Patient Status Disposition: Transfer SNF Condition: Good Functional capacity at discharge: wheelchair bound Overall status at discharge: patient is progressing back to baseline - Discharge Instructions Instructions: Diabetes Mellitus Type 2 in Adults (DC) Follow Up With: Sven Delong DO [Primary Care Provider] - Ronnie Lo DO [Non-Partnered Physician] - Estella Pérez MD [Partnered Physician] - - Diet and Activity Activity: as per physical therapy Diet: diabetic diet - VTE Documentation of Mechanical Device: Intermittent pneumatic compression device
[2018-01-22 08:34] LABS: Calcium 10.6 mg/dL (8.6-10.3)
--- NOTE | 2018-01-22 08:39 | Nephrology Progress Note ---
Date of Encounter: 01/22/18 Time of Encounter: 08:25 - Assessment and Plan (1) End stage renal disease Current Visit: Yes Status: Chronic No HD today, keeping MWF schedule. Subjective Principal diagnosis: altered mental status Interval history: Laying in bed. Knows in [place]. Objective - Vital Signs Vital signs: Vital Signs Temp Pulse Resp BP Pulse Ox 01/22/18 06:40 98.5 F 69 18 154/77 96 01/22/18 02:44 98.3 F 79 16 137/88 96 01/21/18 22:40 98.1 F 67 16 142/69 97 01/21/18 18:54 97.9 F 81 15 129/62 94 01/21/18 15:34 97.5 F L 67 16 146/63 95 01/21/18 10:57 98.5 F 64 16 137/69 97 Intake and Output 01/21/18 01/22/18 01/22/18 23:59 07:59 15:59 Intake Total 240 / 240 100 / 100 Balance 240 / 240 100 / 100 Intake: Oral 240 / 240 100 / 100 Other: Meal Dinner Percent of Meal Consumed 50% # Urine Diapers 1 1 Weight 77.9 kg Blood Glucose* 138 Patient Weight 01/22/18 23:59 Weight 77.9 kg - General Appearance General appearance: Present: well-developed, well-nourished, appears started age EENT: Present: mucous membranes moist Neck: Present: no JVD Respiratory: Present: clear Cardiology: Present: no edema, regular rate, regular rhythm Dialysis Vascular Access: Arteriovenous Fistula Gastrointestinal: Present: normoactive bowel sounds, no tenderness Integumentary: Present: warm and dry Psychiatric: Present: cooperative - Lab 01/22/18 07:41 01/22/18 07:41 Most recent lab results ABG pH 7.44 pH Units (7.32-7.45) 01/16/18 23:49 ABG pCO2 48 mmHg (35-45) H 01/16/18 23:49 ABG pO2 178 mmHg (85-104) H 01/16/18 23:49 ABG HCO3 33 mEq/L (21-27) H 01/16/18 23:49 ABG O2 Saturation 100 % (95-98) H 01/16/18 23:49 Calcium 10.6 mg/dL (8.6-10.3) H 01/22/18 07:41 - VTE Documentation of Mechanical Device: Intermittent pneumatic compression device Consult Discharge Plan - Plan Referrals: Sven Delong DO [Primary Care Provider] -
--- NOTE | 2018-01-22 08:43 | Physician Discharge Referral ---
ExtendedCare Referral Info Transfer To: [facility] Provider in Charge: Rosalind Lopez Provider in Charge after Transfer: PCP Institutional Level of Care: Skilled - Diagnosis (1) Metabolic encephalopathy Priority: Primary Status: Resolved (2) Altered mental status Priority: Secondary Status: Acute (3) End stage renal disease Priority: Secondary Status: Chronic (4) Diabetes mellitus Priority: Secondary Status: Chronic (5) Weakness of both lower extremities Priority: Secondary Status: Acute (6) Decreased ambulation status Priority: Secondary Status: Acute (7) Weakness of left upper extremity Priority: Secondary Status: Acute (8) Physical deconditioning Priority: Secondary Status: Acute Prognosis: Fair Aware of Diagnosis: Family Aware of Prognosis: Family - Transfer Medications Home Medications: Aspirin [Adult Aspirin Regimen] 81 mg PO DAILY 01/17/18 [History] Atorvastatin [Lipitor] 40 mg PO HS 01/17/18 [History] B Complex W-C No.20/Folic Acid [Nephrocaps Softgel] 1 mg PO DAILY 01/17/18 [ History] Calcium Acetate [Phos-LO] 667 mg PO BID 01/17/18 [History] Cinacalcet HCl [Sensipar] 60 mg PO DAILY 01/17/18 [History] Lisinopril [Zestril] 10 mg PO DAILY 01/17/18 [History] Megestrol Acetate [Megace] 40 mg PO BID 01/17/18 [History] Metoclopramide [Reglan] 10 mg PO QIDAC 01/17/18 [History] Metoprolol Tartrate [Lopressor] 12.5 mg PO BID 01/17/18 [History] Omeprazole [PriLOSEC] 20 mg PO BID 01/17/18 [History] Allergies/Adverse Reactions: 3 Allergy/AdvReac Type Severity Reaction Status Date / Time sulfamethoxazole Allergy Hives Verified 06/22/17 19:42 [From ] trimethoprim [From ] Allergy Hives Verified 06/22/17 19:42 - Respiratory Orders Smoking Cessation: Smoking cessation has been advised. For more information, call the [place] Tobacco Quit Line at 1-171-SNDJ-NOW. - Ancillary Orders May use pressure relief devices daily prn - Advance Directives Code Status: Full Code - Rehabiliation Orders Rehab Potential: Fair Rehab Orders: Evaluation for Physical Therapy, Evaluation for Occupational Therapy - Treatments Skin tear care topically daily PRN per policy - Diet Orders Mechanical Soft, No Concentrated Sweets CERTIFICATION: I certify that the transfer of the above named patient to an Extended Care Facility is necessary for the continuing treatment of the diagnosis listed. The above information is true and accurate reflection of patient's current condition. Confidential - Redisclosure prohibited without a patient's written consent.
[2018-01-22] MEDS: amLODIPine 5 MG TABLET PO SCH (09:50)
== END 2018-01-22 09:50 | DRG 70 ==
LOC: 3BNU 22:47 → EMEROO 22:47 → 3BNU 01-17 02:17
PROVIDERS: ADMIT Nurse Practitioner Acute Care; ATTEND Family Medicine

== ENCOUNTER 2020-02-18 09:47 | Inpatient (IN) ==
[2020-02-18] MEDS ORDERED: 0.9 % Sodium Chloride 1,000 ML IVC ONE ×2 (09:52→14:14)
[2020-02-18 10:18] LABS: Basophils % 0.4 %; Eosinophils % 0.3 %; Hematocrit 27.8 % (35.3-44.9); Immature Granulocytes % 0.3 % (0-4); Lymphocytes % 12.1 %; Mean Corpuscular HGB Conc 32.4 g/dL (31.6-35.5); Mean Corpuscular Hemoglobin 33.1 pg (28.0-33.3); Mean Corpuscular Volume 102.2 fL (83.0-100.0); Mean Platelet Volume 10.7 fL (9.4-12.4); Monocytes # 0.6 K/mcL (0.0-1.3); Monocytes % 7.5 %; Neutrophils # 6.3 K/mcL (1.6-8.9); Platelet Count 172 K/mcL (140-400); Red Blood Count 2.72 M/mcL (3.82-4.97); Red Cell Distribution Width 14.8 % (11.5-14.5); Segmented Neutrophils % 79.4 %; White Blood Count 7.9 K/mcL (4.3-11.1)
[2020-02-18] MEDS ORDERED: Isovue-370 500 ML BOTTLE IVP ONE ×2 (10:31→16:31)
[2020-02-18 10:39] LABS: Alanine Aminotransferase 16 Units/L (7-52); Albumin/Globulin Ratio 1.6 (1.1-2.2); Alkaline Phosphatase 117 Units/L (34-104); Aspartate Amino Transferase 21 Units/L (13-39); BUN/Creatinine Ratio 4 (6-26); Bilirubin,Total 0.8 mg/dL (0.3-1.0); Blood Urea Nitrogen 22 mg/dL (8-23); Calcium 9.8 mg/dL (8.6-10.3); Carbon Dioxide 30 mEq/L (23-29); Chloride 99 mEq/L (98-107); Globulin 1.9 g/dL (2.4-3.5); Glucose 123 mg/dL (70-105); Osmolality,Calculated 289 (280-300); Potassium 4.5 mEq/L (3.5-5.1); Sodium 137 mEq/L (136-145); Total Protein 4.9 g/dL (6.4-8.9); Troponin I < 0.03 ng/mL (< 0.04); eGFR For African Americans 9 (> 60); eGFR For Non-African Americans 7 (> 60)
[2020-02-18 12:46] LABS: Bilirubin,Urine Small (Negative); Blood,Urine Negative (Negative); Clarity,Urine Clear (Clear); Color,Urine Yellow (Yellow); Glucose,Urine (UA) Normal (Normal); Ketones,Urine Trace mg/dL (Negative); Leukocyte Esterase,Urine Trace (Negative); Nitrite,Urine Negative (Negative); PH,Urine 7.5 pH Units (5.0-8.0); Protein,Urine 100 mg/dL (Neg-Trace); Urobilinogen,Urine Normal (Normal)
[2020-02-18 13:21] LABS: Squamous Epithelial Cell,Urine Few per hpf (None-Few)
[2020-02-18 13:22] LABS: Bacteria,Urine Few per hpf (None-Few)
[2020-02-18 16:25] LABS: Hematocrit 26.1 % (35.3-44.9)
[2020-02-18] MEDS ORDERED: Naloxone 0.4 MG/ML INJ IVP PRN (16:36)
[2020-02-18] MEDS ORDERED: Acetaminophen 325 MG TABLET PO PRN (16:36)
[2020-02-18 16:55] LABS: Carcinoembryonic Antigen 2.6 ng/mL (Less than 5.0)
[2020-02-18] MEDS ORDERED: 0.9 % Sodium Chloride 500 ML IVC ONE (17:00)
[2020-02-18] MEDS ORDERED: Vancomycin 1 EACH in 0.9 % Sodium Chloride 250 ML IVPB PRN (17:00)
[2020-02-18 17:07] LABS: Hepatitis B Surface Antibody < 3.10 mIU/mL
[2020-02-18 17:17] LABS: Hepatitis B Surface Antigen Nonreactive (Nonreactive)
[2020-02-18] MEDS ORDERED: Gadolinium Contrast Agent (WT Based) IV PRN (17:59)
[2020-02-18 18:21] LABS: C-Reactive Protein < 5 mg/L (Less than 10)
[2020-02-18] MEDS: Piperacillin/Tazobactam 3.375 GM in 0.9 % Sodium Chloride Mini Bag 100 ML IVPB SCH (20:13)
[2020-02-18 20:58] LABS: Hematocrit 23.7 % (35.3-44.9); Hemoglobin 7.5 g/dL (11.5-15.4)
[2020-02-18 21:05] LABS: INR 1.2; Prothrombin Time 13.3 Seconds (9.4-12.1)
[2020-02-18] MEDS ORDERED: 0.9 % Sodium Chloride 250 ML ONE (22:34)
[2020-02-19] MEDS ORDERED: 0.9 % Sodium Chloride 250 ML ONE (02:03)
[2020-02-19] MEDS: Piperacillin/Tazobactam 3.375 GM in 0.9 % Sodium Chloride Mini Bag 100 ML IVPB SCH ×2 (04:02→16:55)
[2020-02-19 04:38] LABS: Basophils % 0.4 %; Eosinophils % 0.1 %; Hematocrit 33.4 % (35.3-44.9); Immature Granulocytes % 0.5 % (0-4); Lymphocytes # 1.5 K/mcL (0.6-4.6); Mean Corpuscular Hemoglobin 30.9 pg (28.0-33.3); Mean Corpuscular Volume 96.5 fL (83.0-100.0); Mean Platelet Volume 11.5 fL (9.4-12.4); Monocytes # 1.2 K/mcL (0.0-1.3); Neutrophils # 8.4 K/mcL (1.6-8.9); Platelet Count 159 K/mcL (140-400); Red Blood Count 3.46 M/mcL (3.82-4.97); Red Cell Distribution Width 15.9 % (11.5-14.5); White Blood Count 11.2 K/mcL (4.3-11.1)
[2020-02-19 04:40] LABS: Hemoglobin 10.7 g/dL (11.5-15.4)
[2020-02-19 04:57] LABS: Albumin 2.6 g/dL (3.5-5.7); Albumin/Globulin Ratio 1.4 (1.1-2.2); Bilirubin,Direct 0.3 mg/dL (0.0-0.2); Bilirubin,Indirect 0.7 mg/dL (0.0-1.0); Calcium 8.8 mg/dL (8.6-10.3); Globulin 1.9 g/dL (2.4-3.5); Magnesium 1.8 mg/dL (1.6-2.6); Phosphorous 5.3 mg/dL (2.7-4.5); Potassium 4.7 mEq/L (3.5-5.1); Total Protein 4.5 g/dL (6.4-8.9)
[2020-02-19] MEDS ORDERED: *HR* Heparin 10,000 UNIT/10 ML VIAL IV PRN (07:24)
[2020-02-19] MEDS ORDERED: 0.9 % Sodium Chloride 250 ML IVC PRN (07:24)
[2020-02-19] MEDS ORDERED: 0.9 % Sodium Chloride 1,000 ML PRIME SCH (07:30)
[2020-02-19] MEDS ORDERED: Albumin 25% 25gram/100mL 25 GM/100 ML IV.SOLN IVPB PRN (08:36)
[2020-02-19 11:24] LABS: Hematocrit 31.1 % (35.3-44.9); Hemoglobin 10.5 g/dL (11.5-15.4)
[2020-02-19] MEDS ORDERED: Vancomycin 500 MG in 0.9 % Sodium Chloride Mini Bag 100 ML IVPB ONE (14:00)
[2020-02-19 17:24] LABS: Hematocrit 27.4 % (35.3-44.9); Hemoglobin 8.9 g/dL (11.5-15.4)
[2020-02-19] MEDS: Calcium Acetate 667 MG CAPSULE PO SCH (18:26)
[2020-02-19 19:12] LABS: INR 1.2
[2020-02-19 19:15] LABS: Activated Partial Thrombo Time 31.8 Seconds (26.0-36.0)
[2020-02-19 22:35] LABS: Hematocrit 26.5 % (35.3-44.9); Hemoglobin 8.6 g/dL (11.5-15.4)
[2020-02-20 03:59] LABS: Hematocrit 25.7 % (35.3-44.9); Hemoglobin 8.6 g/dL (11.5-15.4); Mean Corpuscular HGB Conc 33.5 g/dL (31.6-35.5); Mean Corpuscular Hemoglobin 31.9 pg (28.0-33.3); Mean Corpuscular Volume 95.2 fL (83.0-100.0); Platelet Count 136 K/mcL (140-400); Red Cell Distribution Width 17.4 % (11.5-14.5); White Blood Count 7.6 K/mcL (4.3-11.1)
[2020-02-20 04:08] LABS: INR 1.2
[2020-02-20 04:10] LABS: Activated Partial Thrombo Time 33.7 Seconds (26.0-36.0)
[2020-02-20 04:22] LABS: Calcium 8.9 mg/dL (8.6-10.3); Potassium 3.5 mEq/L (3.5-5.1)
[2020-02-20] MEDS: Piperacillin/Tazobactam 3.375 GM in 0.9 % Sodium Chloride Mini Bag 100 ML IVPB SCH ×2 (04:36→20:13)
[2020-02-20] MEDS ORDERED: 0.9 % Sodium Chloride 250 ML IVC PRN (10:37)
[2020-02-20] MEDS ORDERED: 0.9 % Sodium Chloride 1,000 ML PRIME SCH (10:45)
[2020-02-20] MEDS: Calcium Acetate 667 MG CAPSULE PO SCH ×2 (11:10→20:13)
[2020-02-20 16:11] LABS: Hematocrit 27.3 % (35.3-44.9); Hemoglobin 8.9 g/dL (11.5-15.4)
[2020-02-20 16:16] LABS: Appearance of Body Fluid Cloudy (Clear); Volume of Body Fluid 60 mL
[2020-02-20 17:54] LABS: Basophils % 0.4 %; Eosinophils # 0.1 K/mcL (0.0-0.6); Eosinophils % 1.3 %; Hemoglobin 9.1 g/dL (11.5-15.4); Immature Granulocytes % 0.5 % (0-4); Lymphocytes # 0.8 K/mcL (0.6-4.6); Lymphocytes % 10.5 %; Mean Corpuscular HGB Conc 32.5 g/dL (31.6-35.5); Mean Corpuscular Hemoglobin 31.6 pg (28.0-33.3); Mean Corpuscular Volume 97.2 fL (83.0-100.0); Mean Platelet Volume 11.2 fL (9.4-12.4); Monocytes # 0.9 K/mcL (0.0-1.3); Neutrophils # 5.6 K/mcL (1.6-8.9); Nucleated Red Blood Cells 0.3 /100 WBC (0); Platelet Count 144 K/mcL (140-400); Red Blood Count 2.88 M/mcL (3.82-4.97); Red Cell Distribution Width 17.2 % (11.5-14.5); Segmented Neutrophils % 75.3 %; White Blood Count 7.4 K/mcL (4.3-11.1)
[2020-02-20 17:57] LABS: VBG Ionized Calcium 1.24 mmol/L (1.15-1.35)
[2020-02-20 17:58] LABS: INR 1.3; Prothrombin Time 14.5 Seconds (9.4-12.1)
[2020-02-20 18:01] LABS: Activated Partial Thrombo Time 33.2 Seconds (26.0-36.0)
[2020-02-20 18:17] LABS: Albumin 2.8 g/dL (3.5-5.7); Albumin/Globulin Ratio 1.6 (1.1-2.2); Calcium 8.8 mg/dL (8.6-10.3); Globulin 1.8 g/dL (2.4-3.5); Magnesium 1.7 mg/dL (1.6-2.6); Phosphorous 2.9 mg/dL (2.7-4.5); Potassium 3.7 mEq/L (3.5-5.1); Total Protein 4.6 g/dL (6.4-8.9); Troponin I 0.12 ng/mL (< 0.04)
[2020-02-20 21:30] VITALS: BP 132/45
[2020-02-21 12:50] LABS: Amylase,Peritoneal Fluid < 10 Units/L (No Ref Range); Glucose,Peritoneal Fluid 60 mg/dL (No Ref Range); LDH,Peritoneal Fluid > 1200 Units/L (No Ref Range); Total Protein,Peritoneal Fluid < 3.0 g/dL
== END 2020-02-20 22:00 | disposition short-term general hospital (02) | DRG 871 ==
LOC: EMEROOARM 09:47 → 2ANU 09:47 → ICNU 18:26
PROVIDERS: ADMIT Family Medicine; ATTEND Family Medicine

== ENCOUNTER 2020-03-19 13:09 | Inpatient (IN) ==
[2020-03-19 13:30] LABS: ABG Base Excess 13 mEq/L (-2 to 3); ABG HCO3 37 mEq/L (21-27); ABG Oxygen Saturation 100 % (95-98); ABG PCO2 46 mmHg (35-45); ABG PH 7.51 pH Units (7.32-7.45); ABG PO2 297 mmHg (85-104); ABG TCO2 38 mEq/L (20-26)
[2020-03-19 13:36] LABS: Basophils % 0.6 %; Eosinophils # 0.2 K/mcL (0.0-0.6); Eosinophils % 3.3 %; Hematocrit 29.4 % (35.3-44.9); Immature Granulocytes % 1.4 % (0-4); Lymphocytes # 1.4 K/mcL (0.6-4.6); Lymphocytes % 21.5 %; Mean Corpuscular HGB Conc 30.6 g/dL (31.6-35.5); Mean Corpuscular Hemoglobin 32.5 pg (28.0-33.3); Mean Corpuscular Volume 106.1 fL (83.0-100.0); Mean Platelet Volume 10.5 fL (9.4-12.4); Monocytes # 0.5 K/mcL (0.0-1.3); Monocytes % 8.2 %; Neutrophils # 4.3 K/mcL (1.6-8.9); Platelet Count 199 K/mcL (140-400); Red Blood Count 2.77 M/mcL (3.82-4.97); Red Cell Distribution Width 16.6 % (11.5-14.5); White Blood Count 6.6 K/mcL (4.3-11.1)
[2020-03-19] MEDS ORDERED: *HR* Dextrose 50 % in Water (Vial) 50 ML VIAL IVP ONE ×2 (13:37→14:42)
[2020-03-19] MEDS ORDERED: *HR* Dextrose 50 % in Water (Vial) 50 ML VIAL ONE ×2 (13:41→14:49)
[2020-03-19 13:50] LABS: INR 1.1; Prothrombin Time 12.2 Seconds (9.4-12.1)
[2020-03-19 14:12] LABS: Alanine Aminotransferase 7 Units/L (7-52); Albumin 2.2 g/dL (3.5-5.7); Albumin/Globulin Ratio 0.8 (1.1-2.2); Alkaline Phosphatase 125 Units/L (34-104); Aspartate Amino Transferase 17 Units/L (13-39); BUN/Creatinine Ratio 4 (6-26); Bilirubin,Direct 0.3 mg/dL (0.0-0.2); Bilirubin,Indirect 0.6 mg/dL (0.0-1.0); Bilirubin,Total 0.9 mg/dL (0.3-1.0); Blood Urea Nitrogen 7 mg/dL (8-23); Calcium 7.8 mg/dL (8.6-10.3); Carbon Dioxide 35 mEq/L (23-29); Chloride 100 mEq/L (98-107); Creatine Kinase 20 Units/L (30-223); Ethanol < 10 mg/dL (Less than 10); Globulin 2.9 g/dL (2.4-3.5); Glucose 76 mg/dL (70-105); Osmolality,Calculated 283 (280-300); Potassium 3.6 mEq/L (3.5-5.1); Sodium 138 mEq/L (136-145); Thyroid Stimulating Hormone 6.162 mcIU/mL (0.340-5.600); Total Protein 5.1 g/dL (6.4-8.9); Troponin I 0.03 ng/mL (< 0.04); eGFR For African Americans 38 (> 60); eGFR For Non-African Americans 31 (> 60)
[2020-03-19 14:45] LABS: Bacteria,Urine Many per hpf (None-Few); Bilirubin,Urine Negative (Negative); Blood,Urine Trace (Negative); Clarity,Urine Turbid (Clear); Color,Urine Yellow (Yellow); Glucose,Urine (UA) Normal (Normal); Ketones,Urine Negative (Negative); Leukocyte Esterase,Urine Large (Negative); Nitrite,Urine Negative (Negative); PH,Urine 7.5 pH Units (5.0-8.0); Protein,Urine 100 mg/dL (Neg-Trace); RBC,Urine 0-3 per hpf (0-3); Specific Gravity,Urine 1.014 (1.010-1.025); Urobilinogen,Urine Normal (Normal); WBC,Urine TNTC per hpf (0-3)
[2020-03-19] MEDS ORDERED: D10% in Water 500 ML ONE (14:49)
[2020-03-19] MEDS ORDERED: cefTRIAXone 1,000 MG in Water for inj. (sterile) 10 ML IVP ONE (14:56)
[2020-03-19] MEDS: D10% in Water 500 ML IVC SCH (15:05)
[2020-03-19 15:27] LABS: Amphetamine Screen,Urine Negative ng/mL (Cutoff=1000); Barbiturate Screen,Urine Negative ng/mL (Cutoff=200); Benzodiazepines Screen,Urine Negative ng/mL (Cutoff=200); Cannabinoid Screen,Urine Negative ng/mL (Cutoff = 50); Cocaine Screen,Urine Negative ng/mL (Cutoff= 300); Opiate Screen,Urine Negative ng/mL (Cutoff=300); Phencyclidine Screen,Urine Negative ng/mL (Cutoff=25)
[2020-03-19] MEDS ORDERED: *HR* Dextrose 50 % in Water (Vial) 50 ML VIAL IVP PRN (16:59)
[2020-03-19 17:26] LABS: Adenovirus Not Detected (Not Detect); Bordetella Pertussis Not Detected (Not Detect); Chlamydophila pneumoniae Not Detected (Not Detect); Coronavirus 229E Not Detected (Not Detect); Coronavirus HKU1 Not Detected (Not Detect); Coronavirus NL63 Not Detected (Not Detect); Coronavirus OC43 Not Detected (Not Detect); Human Metapneumovirus Not Detected (Not Detect); Human Rhinovirus/Enterovirus Not Detected (Not Detect); Influenza A Subtype 2009 H1 Not Detected (Not Detect); Influenza B Not Detected (Not Detect); Mycoplasma pneumoniae Not Detected (Not Detect); Parainfluenza Virus 1 Not Detected (Not Detect); Parainfluenza Virus 2 Not Detected (Not Detect); Parainfluenza Virus 3 Not Detected (Not Detect); Parainfluenza Virus 4 Not Detected (Not Detect); Respiratory Syncytial Virus Not Detected (Not Detect)
[2020-03-19 17:27] LABS: SARS-CoV-2 Not Detected (Not Detect)
[2020-03-19] MEDS: Levothyroxine 25 MCG TABLET PO SCH (19:00)
[2020-03-20] MEDS: D10% in Water 500 ML IVC SCH (01:47)
[2020-03-20 02:49] LABS: Basophils # 0.1 K/mcL (0.0-0.2); Basophils % 0.7 %; Eosinophils # 0.3 K/mcL (0.0-0.6); Eosinophils % 3.8 %; Hematocrit 24.4 % (35.3-44.9); Hemoglobin 7.6 g/dL (11.5-15.4); Immature Granulocytes % 1.5 % (0-4); Immature Platelets 6.1 % (1.1-6.1); Lymphocytes # 1.5 K/mcL (0.6-4.6); Lymphocytes % 19.8 %; Mean Corpuscular HGB Conc 31.1 g/dL (31.6-35.5); Mean Corpuscular Hemoglobin 32.2 pg (28.0-33.3); Mean Corpuscular Volume 103.4 fL (83.0-100.0); Mean Platelet Volume 11.3 fL (9.4-12.4); Monocytes # 0.7 K/mcL (0.0-1.3); Platelet Count 110 K/mcL (140-400); Red Blood Count 2.36 M/mcL (3.82-4.97); Red Cell Distribution Width 16.6 % (11.5-14.5); Segmented Neutrophils % 65.2 %; White Blood Count 7.4 K/mcL (4.3-11.1)
[2020-03-20 03:00] LABS: Calcium 7.4 mg/dL (8.6-10.3); Potassium 3.7 mEq/L (3.5-5.1)
[2020-03-20 03:03] LABS: Neutrophils # 4.8 K/mcL (1.6-8.9)
[2020-03-20] MEDS: Levothyroxine 25 MCG TABLET PO SCH (04:51)
[2020-03-20 07:19] LABS: Acinetobacter baumannii by PCR Not Detected (Not Detect); Candida albicans by PCR Not Detected (Not Detect); Candida glabrata by PCR Not Detected (Not Detect); Candida krusei by PCR Not Detected (Not Detect); Candida parapsilosis by PCR Not Detected (Not Detect); Candida tropicalis by PCR Not Detected (Not Detect); Enterobacter cloacae Cmplx PCR Not Detected (Not Detect); Enterobacteriaceae by PCR Not Detected (Not Detect); Enterococcus by PCR Not Detected (Not Detect); Escherichia coli by PCR Not Detected (Not Detect); Klebsiella oxytoca by PCR Not Detected (Not Detect); Klebsiella pneumoniae by PCR Not Detected (Not Detect); Proteus by PCR Not Detected (Not Detect); Pseudomonas aeruginosa by PCR Not Detected (Not Detect); Serratia marcescens by PCR Not Detected (Not Detect); Staphylococcus aureus by PCR DETECTED (Not Detect); Streptococcus agalactiae(B)PCR Not Detected (Not Detect); Streptococcus by PCR Not Detected (Not Detect); Streptococcus pneumoniae PCR Not Detected (Not Detect); Streptococcus pyogenes (A) PCR Not Detected (Not Detect); mecA Methicillin-Resist Gene DETECTED (Not Detect)
[2020-03-20] MEDS ORDERED: Vancomycin 1,250 MG/262.5 ML IV.SOLN IVPB ONE (08:02)
[2020-03-20] MEDS ORDERED: *HR* OxyCODONE/APAP 5/325 TABLET PO PRN (10:01)
[2020-03-20] MEDS ORDERED: Perflutren Lipid Microsphere 1.3 ML in 0.9 % Sodium Chloride 8.7 ML IVP PRN (11:24)
[2020-03-20] MEDS ORDERED: Acetaminophen 325 MG TABLET PO PRN (12:09)
[2020-03-20 18:35] LABS: Hematocrit 22.8 % (35.3-44.9); Hemoglobin 7.1 g/dL (11.5-15.4)
[2020-03-20] MEDS: Mirtazapine 15 MG TABLET PO SCH (21:00)
[2020-03-21] MEDS: D10% in Water 500 ML IVC SCH (01:43)
[2020-03-21] MEDS: Levothyroxine 25 MCG TABLET PO SCH (05:30)
[2020-03-21 05:36] LABS: Hematocrit 23.5 % (35.3-44.9); Hemoglobin 7.3 g/dL (11.5-15.4); Mean Corpuscular HGB Conc 31.1 g/dL (31.6-35.5); Mean Corpuscular Hemoglobin 32.6 pg (28.0-33.3); Mean Corpuscular Volume 104.9 fL (83.0-100.0); Mean Platelet Volume 10.7 fL (9.4-12.4); Platelet Count 146 K/mcL (140-400); Red Blood Count 2.24 M/mcL (3.82-4.97); Red Cell Distribution Width 16.3 % (11.5-14.5); White Blood Count 6.4 K/mcL (4.3-11.1)
[2020-03-21 05:53] LABS: Calcium 7.8 mg/dL (8.6-10.3); Potassium 3.6 mEq/L (3.5-5.1)
[2020-03-21] MEDS ORDERED: 0.9 % Sodium Chloride 250 ML IVC PRN (06:59)
[2020-03-21] MEDS ORDERED: 0.9 % Sodium Chloride 1,000 ML PRIME SCH (07:00)
[2020-03-21] MEDS: Metoprolol XL (24 HR) Succ 25 MG TAB.ER.24H PO SCH (08:01)
[2020-03-21 08:29] LABS: Hepatitis B Surface Antibody < 3.10 mIU/mL
[2020-03-21 08:39] LABS: Hepatitis B Surface Antigen Nonreactive (Nonreactive)
[2020-03-21] MEDS: Mirtazapine 15 MG TABLET PO SCH (23:45)
[2020-03-22] MEDS: Levothyroxine 25 MCG TABLET PO SCH (06:49)
[2020-03-22 07:36] LABS: Hematocrit 22.4 % (35.3-44.9); Mean Corpuscular HGB Conc 31.3 g/dL (31.6-35.5); Mean Corpuscular Hemoglobin 33.3 pg (28.0-33.3); Mean Corpuscular Volume 106.7 fL (83.0-100.0); Mean Platelet Volume 10.6 fL (9.4-12.4); Platelet Count 151 K/mcL (140-400); Red Cell Distribution Width 16.4 % (11.5-14.5); White Blood Count 5.9 K/mcL (4.3-11.1)
[2020-03-22 07:48] LABS: Calcium 8.5 mg/dL (8.6-10.3); Potassium 3.8 mEq/L (3.5-5.1)
[2020-03-22] MEDS: Metoprolol XL (24 HR) Succ 25 MG TAB.ER.24H PO SCH (09:03)
[2020-03-22] MEDS: Mirtazapine 15 MG TABLET PO SCH (22:42)
[2020-03-23] MEDS: Levothyroxine 25 MCG TABLET PO SCH (06:49)
[2020-03-23 07:31] LABS: Hematocrit 22.7 % (35.3-44.9); Mean Corpuscular HGB Conc 30.8 g/dL (31.6-35.5); Mean Corpuscular Hemoglobin 33.3 pg (28.0-33.3); Mean Corpuscular Volume 108.1 fL (83.0-100.0); Mean Platelet Volume 10.6 fL (9.4-12.4); Platelet Count 161 K/mcL (140-400); Red Cell Distribution Width 16.1 % (11.5-14.5); White Blood Count 6.1 K/mcL (4.3-11.1)
[2020-03-23] MEDS: Metoprolol XL (24 HR) Succ 25 MG TAB.ER.24H PO SCH (07:39)
[2020-03-23 07:56] LABS: Calcium 8.9 mg/dL (8.6-10.3); Potassium 4.2 mEq/L (3.5-5.1)
[2020-03-23] MEDS: Piperacillin/Tazobactam 3.375 GM in 0.9 % Sodium Chloride Mini Bag 100 ML IVPB SCH (15:16)
[2020-03-23] MEDS: D5% in Water 500 ML IVC SCH (19:15)
[2020-03-23] MEDS: Mirtazapine 15 MG TABLET PO SCH (21:57)
[2020-03-24] MEDS: Piperacillin/Tazobactam 3.375 GM in 0.9 % Sodium Chloride Mini Bag 100 ML IVPB SCH ×3 (00:27→23:23)
[2020-03-24 02:09] LABS: Calcium 8.9 mg/dL (8.6-10.3); Potassium 4.7 mEq/L (3.5-5.1)
[2020-03-24 04:08] LABS: Hematocrit 23.6 % (35.3-44.9); Hemoglobin 7.5 g/dL (11.5-15.4); Mean Corpuscular HGB Conc 31.8 g/dL (31.6-35.5); Mean Corpuscular Hemoglobin 32.9 pg (28.0-33.3); Mean Corpuscular Volume 103.5 fL (83.0-100.0); Mean Platelet Volume 11.7 fL (9.4-12.4); Platelet Count 169 K/mcL (140-400); Red Blood Count 2.28 M/mcL (3.82-4.97); Red Cell Distribution Width 16.2 % (11.5-14.5); White Blood Count 11.5 K/mcL (4.3-11.1)
[2020-03-24] MEDS: Levothyroxine 25 MCG TABLET PO SCH (06:05)
[2020-03-24] MEDS ORDERED: 0.9 % Sodium Chloride 250 ML IVC PRN (07:37)
[2020-03-24] MEDS: Metoprolol XL (24 HR) Succ 25 MG TAB.ER.24H PO SCH (13:22)
[2020-03-24] MEDS: D5% in Water 500 ML IVC SCH (17:43)
[2020-03-24] MEDS: Mirtazapine 15 MG TABLET PO SCH (20:42)
[2020-03-24] MEDS: Lactobacillus 1 EACH CAP.SPRINK PO SCH (22:22)
[2020-03-25] MEDS: Levothyroxine 25 MCG TABLET PO SCH (05:18)
[2020-03-25 05:53] LABS: Hematocrit 22.8 % (35.3-44.9); Hemoglobin 7.2 g/dL (11.5-15.4); Mean Corpuscular HGB Conc 31.6 g/dL (31.6-35.5); Mean Corpuscular Hemoglobin 33.8 pg (28.0-33.3); Platelet Count 175 K/mcL (140-400); Red Blood Count 2.13 M/mcL (3.82-4.97); Red Cell Distribution Width 16.4 % (11.5-14.5)
[2020-03-25 06:14] LABS: Calcium 8.5 mg/dL (8.6-10.3); Potassium 3.4 mEq/L (3.5-5.1)
[2020-03-25] MEDS: Metoprolol XL (24 HR) Succ 25 MG TAB.ER.24H PO SCH (08:42)
[2020-03-25] MEDS: Lactobacillus 1 EACH CAP.SPRINK PO SCH ×2 (08:42→21:04)
[2020-03-25] MEDS ORDERED: levoFLOXacin 750 MG/150 ML 750 MG/150 ML BAG IVPB ONE (10:00)
[2020-03-25] MEDS: D5% in Water 500 ML IVC SCH (11:47)
[2020-03-25 19:53] LABS: Campylobacter by PCR Not detected (Not detect)
[2020-03-25 19:57] LABS: C.difficile Toxin A/B Gene PCR DETECTED (Not detect)
[2020-03-25 19:58] LABS: Adenovirus F 40/41 PCR Not detected (Not detect); Astrovirus PCR Not detected (Not detect); Cryptosporidium by PCR Not detected (Not detect); Cyclospora cayetanensis PCR Not detected (Not detect); E. coli O157 by PCR Not detected (Not detect); Entamoeba histolytica PCR Not detected (Not detect); Enteroaggregative E.coli(EAEC) Not detected (Not detect); Enteropathogenic E.coli(EPEC) DETECTED (Not detect); Enterotoxigenic E.coli (ETEC) Not detected (Not detect); Giardia lamblia PCR Not detected (Not detect); Norovirus GI/GII PCR Not detected (Not detect); Plesiomonas shigelloides PCR Not detected (Not detect); Rotavirus A PCR Not detected (Not detect); Salmonella PCR Not detected (Not detect); Sapovirus PCR Not detected (Not detect); Shig/EnteroinvasiveE coli EIEC Not detected (Not detect); Shigalike tox-prod E coli STEC Not detected (Not detect); Vibrio PCR Not detected (Not detect); Vibrio cholerae PCR Not detected (Not detect); Yersinia enterocolitica PCR Not detected (Not detect)
[2020-03-25] MEDS: Vancomycin Oral Soln 125 MG/2.5 ML UDC PO SCH (21:04)
[2020-03-25] MEDS: Mirtazapine 15 MG TABLET PO SCH (21:04)
[2020-03-26] MEDS: D5% in Water 500 ML IVC SCH (00:28)
[2020-03-26] MEDS: Levothyroxine 25 MCG TABLET PO SCH (06:12)
[2020-03-26 07:19] LABS: Hematocrit 21.4 % (35.3-44.9); Hemoglobin 6.8 g/dL (11.5-15.4); Mean Corpuscular HGB Conc 31.8 g/dL (31.6-35.5); Mean Corpuscular Hemoglobin 33.8 pg (28.0-33.3); Mean Corpuscular Volume 106.5 fL (83.0-100.0); Mean Platelet Volume 10.7 fL (9.4-12.4); Platelet Count 157 K/mcL (140-400); Red Blood Count 2.01 M/mcL (3.82-4.97); Red Cell Distribution Width 16.3 % (11.5-14.5); White Blood Count 6.8 K/mcL (4.3-11.1)
[2020-03-26] MEDS ORDERED: 0.9 % Sodium Chloride 250 ML IVC PRN (07:37)
[2020-03-26 07:38] LABS: Calcium 8.7 mg/dL (8.6-10.3); Potassium 3.4 mEq/L (3.5-5.1)
[2020-03-26] MEDS ORDERED: 0.9 % Sodium Chloride 1,000 ML PRIME SCH (07:45)
[2020-03-26] MEDS: Vancomycin Oral Soln 125 MG/2.5 ML UDC PO SCH ×4 (08:12→21:18)
[2020-03-26] MEDS: Lactobacillus 1 EACH CAP.SPRINK PO SCH ×2 (08:12→21:18)
[2020-03-26] MEDS: Metoprolol XL (24 HR) Succ 25 MG TAB.ER.24H PO SCH (11:50)
[2020-03-26] MEDS: LEVOFLOXACIN 500 MG/100 ML MLS IVPB SCH (13:22)
[2020-03-26 16:25] LABS: Hematocrit 22.6 % (35.3-44.9); Hemoglobin 7.2 g/dL (11.5-15.4)
[2020-03-26 17:06] LABS: Ferritin 1400 ng/mL (10-120); Iron 43 mcg/dL (50-170); Transferrin < 75 mg/dL (203-362)
[2020-03-26 17:11] LABS: Folate 6.1 ng/mL (3.0-16.0)
[2020-03-26] MEDS: *HR* Heparin 5,000 UNIT/ML VIAL SQ SCH (21:18)
[2020-03-26] MEDS: Mirtazapine 15 MG TABLET PO SCH (21:18)
[2020-03-27 02:01] LABS: Hematocrit 22.8 % (35.3-44.9); Hemoglobin 7.2 g/dL (11.5-15.4); Mean Corpuscular HGB Conc 31.6 g/dL (31.6-35.5); Mean Corpuscular Hemoglobin 33.5 pg (28.0-33.3); Mean Platelet Volume 10.8 fL (9.4-12.4); Platelet Count 151 K/mcL (140-400); Red Blood Count 2.15 M/mcL (3.82-4.97); Red Cell Distribution Width 16.3 % (11.5-14.5); White Blood Count 5.9 K/mcL (4.3-11.1)
[2020-03-27 02:23] LABS: Calcium 9.1 mg/dL (8.6-10.3); Magnesium 1.6 mg/dL (1.6-2.6); Phosphorous 2.4 mg/dL (2.7-4.5); Potassium 3.4 mEq/L (3.5-5.1)
[2020-03-27] MEDS: Levothyroxine 25 MCG TABLET PO SCH (05:08)
[2020-03-27] MEDS: *HR* Heparin 5,000 UNIT/ML VIAL SQ SCH ×3 (05:08→21:49)
[2020-03-27] MEDS: D5% in Water 500 ML IVC SCH (05:09)
[2020-03-27] MEDS: Lactobacillus 1 EACH CAP.SPRINK PO SCH ×2 (07:49→21:49)
[2020-03-27] MEDS ORDERED: 0.9 % Sodium Chloride 500 ML IVC ONE (08:39)
[2020-03-27] MEDS ORDERED: Lidocaine Viscous Oral Soln 15 ML SOLUTION MM PRN (08:39)
[2020-03-27] MEDS: Metoprolol XL (24 HR) Succ 25 MG TAB.ER.24H PO SCH (09:00)
[2020-03-27] MEDS: *HR* Midazolam HCl 5 MG/5 ML VIAL IVP PRN ×3 (09:05→09:15)
[2020-03-27] MEDS: *HR* FentaNYL (PF) 100 MCG/2 ML VIAL IVP PRN ×3 (09:05→09:15)
[2020-03-27] MEDS: Vancomycin Oral Soln 125 MG/2.5 ML UDC PO SCH ×4 (11:10→21:49)
[2020-03-27] MEDS: Potassium Chloride Elixir 20 MEQ/15 ML UDC PO SCH ×2 (11:10→21:49)
[2020-03-27] MEDS: Mirtazapine 15 MG TABLET PO SCH (21:49)
[2020-03-28] MEDS: *HR* Heparin 5,000 UNIT/ML VIAL SQ SCH ×3 (05:46→20:17)
[2020-03-28] MEDS: Levothyroxine 25 MCG TABLET PO SCH (05:47)
[2020-03-28 07:37] LABS: Hematocrit 22.5 % (35.3-44.9); Hemoglobin 7.2 g/dL (11.5-15.4); Mean Corpuscular Hemoglobin 34.1 pg (28.0-33.3); Mean Corpuscular Volume 106.6 fL (83.0-100.0); Mean Platelet Volume 11.1 fL (9.4-12.4); Platelet Count 169 K/mcL (140-400); Red Blood Count 2.11 M/mcL (3.82-4.97); Red Cell Distribution Width 16.6 % (11.5-14.5); White Blood Count 4.9 K/mcL (4.3-11.1)
[2020-03-28] MEDS ORDERED: 0.9 % Sodium Chloride 250 ML IVC PRN (07:46)
[2020-03-28] MEDS ORDERED: 0.9 % Sodium Chloride 1,000 ML PRIME SCH (08:00)
[2020-03-28 09:02] LABS: Calcium 9.2 mg/dL (8.6-10.3); Magnesium 1.7 mg/dL (1.6-2.6); Phosphorous 2.9 mg/dL (2.7-4.5)
[2020-03-28] MEDS ORDERED: Albumin 25% 25gram/100mL 25 GM/100 ML IV.SOLN ONE (11:11)
[2020-03-28] MEDS ORDERED: Albumin 25% 25gram/100mL 25 GM/100 ML IV.SOLN IVPB PRN (12:24)
[2020-03-28] MEDS: Vancomycin Oral Soln 125 MG/2.5 ML UDC PO SCH ×4 (12:52→20:17)
[2020-03-28] MEDS: Metoprolol XL (24 HR) Succ 25 MG TAB.ER.24H PO SCH (12:53)
[2020-03-28] MEDS: Lactobacillus 1 EACH CAP.SPRINK PO SCH ×2 (12:53→20:16)
[2020-03-28] MEDS: LEVOFLOXACIN 500 MG/100 ML MLS IVPB SCH (12:53)
[2020-03-28] MEDS: Mirtazapine 15 MG TABLET PO SCH (20:16)
[2020-03-29] MEDS: *HR* Heparin 5,000 UNIT/ML VIAL SQ SCH ×3 (05:38→20:27)
[2020-03-29] MEDS: Levothyroxine 25 MCG TABLET PO SCH (05:39)
[2020-03-29 08:41] LABS: Hematocrit 21.9 % (35.3-44.9); Hemoglobin 6.8 g/dL (11.5-15.4); Mean Corpuscular HGB Conc 31.1 g/dL (31.6-35.5); Mean Corpuscular Volume 106.3 fL (83.0-100.0); Mean Platelet Volume 10.8 fL (9.4-12.4); Platelet Count 160 K/mcL (140-400); Red Blood Count 2.06 M/mcL (3.82-4.97); Red Cell Distribution Width 16.4 % (11.5-14.5); White Blood Count 3.7 K/mcL (4.3-11.1)
[2020-03-29 09:01] LABS: Calcium 9.4 mg/dL (8.6-10.3); Magnesium 1.6 mg/dL (1.6-2.6); Phosphorous 2.6 mg/dL (2.7-4.5); Potassium 3.9 mEq/L (3.5-5.1)
[2020-03-29] MEDS: Lactobacillus 1 EACH CAP.SPRINK PO SCH ×2 (09:37→20:25)
[2020-03-29] MEDS: Vancomycin Oral Soln 125 MG/2.5 ML UDC PO SCH ×4 (09:37→20:28)
[2020-03-29] MEDS: Metoprolol XL (24 HR) Succ 25 MG TAB.ER.24H PO SCH (09:37)
[2020-03-29] MEDS ORDERED: 0.9 % Sodium Chloride 250 ML IVC SCH (10:30)
[2020-03-29] MEDS: Mirtazapine 15 MG TABLET PO SCH (20:26)
[2020-03-30 04:36] LABS: Hematocrit 28.4 % (35.3-44.9); Mean Corpuscular HGB Conc 31.7 g/dL (31.6-35.5); Mean Corpuscular Hemoglobin 31.9 pg (28.0-33.3); Mean Corpuscular Volume 100.7 fL (83.0-100.0); Mean Platelet Volume 10.7 fL (9.4-12.4); Platelet Count 150 K/mcL (140-400); Red Blood Count 2.82 M/mcL (3.82-4.97); Red Cell Distribution Width 19.4 % (11.5-14.5); White Blood Count 4.4 K/mcL (4.3-11.1)
[2020-03-30 04:55] LABS: Phosphorous 2.9 mg/dL (2.7-4.5); Potassium 4.2 mEq/L (3.5-5.1)
[2020-03-30] MEDS: Levothyroxine 25 MCG TABLET PO SCH (05:40)
[2020-03-30] MEDS: *HR* Heparin 5,000 UNIT/ML VIAL SQ SCH ×3 (05:40→20:31)
[2020-03-30] MEDS: Vancomycin Oral Soln 125 MG/2.5 ML UDC PO SCH ×4 (08:31→20:31)
[2020-03-30] MEDS: Lactobacillus 1 EACH CAP.SPRINK PO SCH ×2 (08:31→20:30)
[2020-03-30] MEDS: Metoprolol XL (24 HR) Succ 25 MG TAB.ER.24H PO SCH (08:31)
[2020-03-30] MEDS ORDERED: levoFLOXacin 500 MG TABLET PO SCH (14:00)
[2020-03-30] MEDS: Mirtazapine 15 MG TABLET PO SCH (20:30)
[2020-03-31] MEDS: Levothyroxine 25 MCG TABLET PO SCH (05:53)
[2020-03-31] MEDS: *HR* Heparin 5,000 UNIT/ML VIAL SQ SCH ×2 (05:53→13:36)
[2020-03-31 06:10] LABS: Hemoglobin 8.4 g/dL (11.5-15.4); Mean Corpuscular HGB Conc 31.1 g/dL (31.6-35.5); Mean Corpuscular Hemoglobin 31.7 pg (28.0-33.3); Mean Corpuscular Volume 101.9 fL (83.0-100.0); Mean Platelet Volume 10.7 fL (9.4-12.4); Platelet Count 157 K/mcL (140-400); Red Blood Count 2.65 M/mcL (3.82-4.97); Red Cell Distribution Width 18.3 % (11.5-14.5); White Blood Count 3.8 K/mcL (4.3-11.1)
[2020-03-31 06:19] LABS: Calcium 9.7 mg/dL (8.6-10.3); Potassium 4.6 mEq/L (3.5-5.1)
[2020-03-31] MEDS ORDERED: 0.9 % Sodium Chloride 250 ML IVC PRN (07:02)
[2020-03-31] MEDS: Lactobacillus 1 EACH CAP.SPRINK PO SCH (08:30)
[2020-03-31] MEDS: Vancomycin Oral Soln 125 MG/2.5 ML UDC PO SCH ×3 (08:30→17:34)
[2020-03-31] MEDS: Metoprolol XL (24 HR) Succ 25 MG TAB.ER.24H PO SCH (09:00)
[2020-03-31] MEDS ORDERED: Vancomycin 500 MG in 0.9 % Sodium Chloride Mini Bag 100 ML IVPB ONE (12:00)
[2020-03-31 15:50] VITALS: BP 91/58
[2020-03-31] MEDS ORDERED: Aminoglycoside Consult 1 EACH MC ONE (17:51)
== END 2020-03-31 17:52 | disposition home health service (06) | DRG 871 ==
LOC: EMEROOARM 13:09 → 2ANU 13:09 → SUATTDRO 16:06 → 2ANU 18:15 → SUATTDRO 03-20 13:38
PROVIDERS: ADMIT Internal Medicine; ATTEND Pharmacist